=== PATIENT | male | born 1985 | race Caucasian/White ===

== ENCOUNTER 2016-11-21 11:21 | Emergency (ER) | payer MEDICARE ==
--- NOTE | 2016-11-21 11:53 | ERPHSYRPT ---
- History of Present Illness Time Seen by Provider: 11/21/16 11:23 Source: patient, family (father and sibling) Exam Limitations: no limitations Patient Subjective Stated Complaint: 'my dad thinks i have sugar problems but i dont know' Triage Nursing Assessment: pt very sober and flat on arrival. presented to er with father and pts son. pt states he is unsure oif he has sugar problems. father states 'is that maybe why you are hearing voices, malika' pt denies hearing voices. skin warm and dry. father leading pt to tell 'nurse about talking to the angels' Physician History: patient has no complaints; father brought here fro evaluation of visual and auditory halucinations; started 6 weeks ago; protestant in nature; voices from God and angels and relativews as well as non-existent relatives; voices not telling him to harm himself or others; no suicidal or homicidal thoughts; gets angry and wants to fight occassionally;no recent illness or trauma; no prior hx to 6 weeks ago; no change in meds; Timing/Duration: week(s) (6 onset), intermittent, gradual onset, worse Severity of Symptoms-Max: moderate Severity of Symptoms-Current: moderate Context related to: other (unknown) Suicidal thoughts: other (none) Associated Symptoms: angry (at times; not now), hallucinating (auditory anbd visual), impaired concentration Previous symptoms: no prior history Allergies/Adverse Reactions: lorazepam [From Ativan] Allergy (Mild, Verified 11/21/16 11:37) Nausea Home Medications: Ergocalciferol (Vitamin D2) [Vitamin D] 50,000 unit PO UD 11/21/16 [History] Oxcarbazepine [Trileptal] 600 mg PO BID 11/21/16 [History] Phenobarb 32.4 mg [Phenobarbital 32.4 mg] 64.8 mg PO BID 11/21/16 [History ] Phenytoin Sod Extended 100 mg* [Dilantin 100 MG] 100 mg PO TID 11/21/16 [ History] Topiramate [Topamax] 200 mg PO BID 11/21/16 [History] Hx Tetanus, Diphtheria Vaccination/Date Given: Yes Hx Influenza Vaccination/Date Given: No Hx Pneumococcal Vaccination/Date Given: No Immunizations Up to Date: Yes - Past Medical History Pertinent Past Medical History: Yes Neurological History: Seizures - Past Surgical History Past Surgical History: Yes Other Surgical History: vns stimulator for seizures. - Social History Smoking Status: Never smoker Exposure to second hand smoke: No Alcohol Use: None Drug Use: none Patient Lives Alone: No Significant Family History: no pertinent family hx - Review of Systems Constitutional: No Symptoms Eyes: No Symptoms Ears, Nose, & Throat: No Symptoms Respiratory: No Cough, No Dyspnea, No Wheezing Cardiac: No Chest Pain, No Palpitations, No Syncope Abdominal/Gastrointestinal: No Abdominal Pain, No Nausea, No Vomiting, No Diarrhea Genitourinary Symptoms: No Symptoms Musculoskeletal: No Symptoms Skin: No Symptoms Neurological: Seizure (chronic), No Dizziness, No Gait Changes, No Headache, No Paralysis, No Parasthesia, No Vertigo Psychological: Emotional Lability, Hallucinations (auditory and visual), Memory Loss, Mood Changes, No Alcohol Abuse, No Drug Abuse, No Suicidal Ideations, No Homicidal Ideations Endocrine: No Symptoms Hematologic/Lymphatic: No Symptoms Immunological/Allergic: No Symptoms - Nursing Vital Signs Nursing Vital Signs: Initial Vital Signs Temperature 98.9 F Temperature Source Oral Pulse Rate 80 Respiratory Rate 18 Blood Pressure [] 116/71 Pain Intensity 0 - Physical Exam General Appearance: mild distress, alert, thin Eyes, Ears, Nose, Throat Exam: normal ENT inspection, TMs normal, pharynx normal , moist mucous membranes Neck Exam: normal inspection, non-tender, supple, full range of motion, No meningismus, No JVD Respiratory Exam: normal breath sounds, lungs clear, airway intact, No chest tenderness, No respiratory distress, No rhonchi, No wheezing, No stridor Cardiovascular Exam: regular rate/rhythm, normal heart sounds, normal peripheral pulses, capillary refill <2 sec, No murmur Gastrointestinal/Abdominal Exam: soft, normal bowel sounds, No tenderness, No mass, No guarding, No rebound, No organomegaly Extremities Exam: normal inspection, normal range of motion, No edema, No tenderness Peripheral Pulses: carotid (R): 4+, carotid (L): 4+, femoral (R): 4+, femoral (L ): 4+, dorsalis-pedis (R): 4+, dorsalis-pedis (L): 4+ Current Suicidality: denies suicide plan 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, normal mood/affect, 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, 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, oriented x 3, responds to pain, flat Appearance: appropriate appearance, neat, impaired insight, impaired recent memory Behavior/Eye Contact/Speech: alert & cooperative, cooperative, good eye contact , normal speech, decreased rate of speech Thoughts/Hallucinations: auditory hallucinations, protestant, visual hallucinations Skin Exam: normal color, warm, dry, No rash, No petechiae SpO2 Interpretation: normal SpO2: 98 Oxygen Delivery: Room Air - Course Nursing assessment & vital signs reviewed: Yes EKG Interpreted by Me: RATE (78), Sinus Rhythm, NORMAL AXIS, NORMAL INTERVALS, NORMAL QRS, NORMAL ST-T, Other (no change from 03-01-2012) Rhythm Strip: Rate (78), Normal Sinus Rhythm - CT Exams Head CT Interpretation: Negative, Tele-radiologist Report, No/Intracranial Hemorrhag Ordered Tests: Active Orders 24 hr Category Date Time Status Accucheck STAT Care 11/21/16 11:46 Active EKG-ER Only STAT Care 11/21/16 11:46 Active Psychiatric Evaluation STAT Care 11/21/16 11:46 Active Re-Check Vital Signs STAT Care 11/21/16 11:46 Completed HEAD WITHOUT CONTRAST [CT] Stat Exams 11/21/16 11:56 Completed ACETAMINOPHEN Stat Lab 11/21/16 11:55 Completed CBC W DIFF Stat Lab 11/21/16 11:55 Completed CMP Stat Lab 11/21/16 11:55 Completed Ethyl Alcohol,Urine Stat Lab 11/21/16 13:30 Completed SALICYLATE Stat Lab 11/21/16 11:55 Completed Urine Triage Profile Stat Lab 11/21/16 13:30 Completed VALPROIC ACID (DEPAKOTE) Stat Lab 11/21/16 11:55 Completed Lab/Rad Data: Laboratory Result Diagrams 11/21/16 11:55 11/21/16 11:55 Laboratory Results 11/21/16 11/21/16 11/21/16 Range/Units 13:30 13:30 11:55 WBC (4.0-10.5) K/mm3 RBC (4.1-5.6) M/mm3 Hgb (12.5-18.0) gm/dl Hct (42-50) % MCV (78-100) fl MCH (26-32) pg MCHC (32-36) g/dl RDW (11.5-14.0) % Plt Count (150-450) K/mm3 MPV (6-9.5) fl Gran % (36.0-66.0) % Lymphocytes % (24.0-44.0) % Monocytes % (0.0-12.0) % Eosinophils % (0.00-5.0) % Basophils % (0.0-0.4) % Basophils # (0-0.4) Sodium 142 (136-145) mEq/L Potassium 3.7 (3.5-5.1) mEq/L Chloride 106 (98-107) mEq/L Carbon Dioxide 24.3 (21-32) mEq/L Anion Gap 15.2 H (5-15) MEQ/L BUN 12 (9-20) mg/dL Creatinine 1.01 (0.55-1.30) mg/dl Estimated GFR > 60 ML/MIN Glucose 98 (70-110) MG/DL Calcium 8.7 (8.5-10.1) mg/dL Total Bilirubin 0.40 (0.2-1.0) mg/dL AST 21 (15-37) U/L ALT 25 (12-78) U/L Alkaline Phosphatase 59 (46-116) U/L Serum Total Protein 7.3 (6.4-8.2) gm/dL Albumin 4.5 (3.4-5.0) g/dL Salicylates < 2.8 L (2.8-20.0) mg/dl Urine Opiates Level NEG. (NEGATIVE) Ur Methadone NEG. (NEGATIVE) Acetaminophen < 2.0 L (10-30) ug/ml Urine Barbiturates POS. (NEGATIVE) Valproic Acid < 3.0 L (50-100) UG/ML Ur Phencyclidine (PCP) NEG. (NEGATIVE) Urine Amphetamine NEG. (NEGATIVE) U Benzodiazepine Level NEG. (NEGATIVE) Urine Cocaine NEG. (NEGATIVE) Urine Marijuana (THC) NEG. (NEGATIVE) Urine pH 7.0 (3-8.5) Urine Ethyl Alcohol < 3 (0.00-20) mg/dl 11/21/16 Range/Units 11:55 WBC 4.7 (4.0-10.5) K/mm3 RBC 4.85 (4.1-5.6) M/mm3 Hgb 15.6 (12.5-18.0) gm/dl Hct 47.1 (42-50) % MCV 97.1 (78-100) fl MCH 32.2 H (26-32) pg MCHC 33.1 (32-36) g/dl RDW 13.1 (11.5-14.0) % Plt Count 159 (150-450) K/mm3 MPV 9.6 H (6-9.5) fl Gran % 53.4 (36.0-66.0) % Lymphocytes % 29.4 (24.0-44.0) % Monocytes % 15.5 H (0.0-12.0) % Eosinophils % 1.5 (0.00-5.0) % Basophils % 0.2 (0.0-0.4) % Basophils # 0.01 (0-0.4) Sodium (136-145) mEq/L Potassium (3.5-5.1) mEq/L Chloride (98-107) mEq/L Carbon Dioxide (21-32) mEq/L Anion Gap (5-15) MEQ/L BUN (9-20) mg/dL Creatinine (0.55-1.30) mg/dl Estimated GFR ML/MIN Glucose (70-110) MG/DL Calcium (8.5-10.1) mg/dL Total Bilirubin (0.2-1.0) mg/dL AST (15-37) U/L ALT (12-78) U/L Alkaline Phosphatase (46-116) U/L Serum Total Protein (6.4-8.2) gm/dL Albumin (3.4-5.0) g/dL Salicylates (2.8-20.0) mg/dl Urine Opiates Level (NEGATIVE) Ur Methadone (NEGATIVE) Acetaminophen (10-30) ug/ml Urine Barbiturates (NEGATIVE) Valproic Acid (50-100) UG/ML Ur Phencyclidine (PCP) (NEGATIVE) Urine Amphetamine (NEGATIVE) U Benzodiazepine Level (NEGATIVE) Urine Cocaine (NEGATIVE) Urine Marijuana (THC) (NEGATIVE) Urine pH (3-8.5) Urine Ethyl Alcohol (0.00-20) mg/dl reviewed reviewed - Progress Progress: re-examined (after labs) Progress Note: 11/21/16 11:55 will get labs , ekg and CT and recheck and Psyche consult 11/21/16 12:[address]; results pending; family at bedside 11/21/16 12:37 CBC wnl 11/21/16 12:47 rechecked; family at bedside; patient resting quietly; CT head wnl; labs except tox screen ok; tox screen results pending; will get Psyche consult 11/21/16 13:17 seizure meds level low; tox screen pending 11/21/16 13:47 tox screen pos for BArbituates only; ETOH neg; no change in exam; will get [facility] consult 11/21/16 13:58 Discussed getting [facility] consult and patient refuses to talk with them. Discussed with father and he will take the patient home and follow up with Dr Armijo on seizure meds and possible Psyche consult; Instructions given Counseled pt/family regarding: lab results, diagnosis, need for follow-up, rad results - Departure Time of Disposition: 13:59 Departure Disposition: Home Clinical Impression: Hallucination, visual, Hallucinations, Seizure disorder Condition: Stable Critical Care Time: No Instructions: Schizophrenia Additional Instructions: continue home meds; follow up Dr Armijo for Hallucinations on 11/25/16 at 315 pm. Follow-up with family doctor as directed. Call for appointment. Return if any problems. If you smoke please stop. Call or follow up with your family doctor for assistance if you need it to stop. Please wear your seatbelt when driving. Have a nice day. Thank you for allowing us to participate in your care today. :o) Dr Jose Antonio Earl
[2016-11-21 12:03] LABS: BASOPHIL % 0.2 % (0.0-0.4); Eosinophil % 1.5 % (0.00-5.0); Granulocytes % 53.4 % (36.0-66.0); Lymphocytes % 29.4 % (24.0-44.0); Mean Cell Volume 97.1 fl (78-100); Mean Corpuscular Hemoglobin 32.2 pg (26-32); Mean Platelet Volume 9.6 fl (6-9.5); Monocytes % 15.5 % (0.0-12.0); Platelet Count 159 K/mm3 (150-450); Red Blood Count 4.85 M/mm3 (4.1-5.6); Red Cell Distribution Width 13.1 % (11.5-14.0); White Blood Count 4.7 K/mm3 (4.0-10.5)
[2016-11-21 12:25] LABS: ALBUMIN 4.5 g/dL (3.4-5.0); ALKALINE PHOSPHATASE 59 U/L (46-116); ANION GAP 15.2 MEQ/L (5-15); BLOOD UREA NITROGEN 12 mg/dL (9-20); CHLORIDE 106 mEq/L (98-107); Carbon Dioxide 24.3 mEq/L (21-32); Glucose 98 MG/DL (70-110); Potassium 3.7 mEq/L (3.5-5.1); SGOT/AST 21 U/L (15-37); SGPT/ALT 25 U/L (12-78); SODIUM 142 mEq/L (136-145); Total Protein 7.3 gm/dL (6.4-8.2)
--- NOTE | 2016-11-21 12:28 | XRAY ---
Indication: Altered mental status. Behavioral problems. History of epilepsy. Multiple contiguous axial images obtained through the head without contrast. Comparison: March 01, 2012 Again normal appearing brain parenchyma, ventricles, and bony calvarium. Visualized paranasal sinuses and mastoid air cells are pneumatized and clear. Impression: Stable normal CT head without contrast exam. CT DI 70.87
[2016-11-21 12:40] LABS: ACETAMINOPHEN < 2.0 ug/ml (10-30)
[2016-11-21 14:26] VITALS: BP 120/64; PULSE 64; O2SAT 97
== END 2016-11-21 14:27 | disposition home or self-care (01) ==
LOC: ED 11:21
DX: R44.3 Hallucinations, unspecified (principal); R44.1 Visual hallucinations; G40.909 Epilepsy, unspecified, not intractable, without status epilepticus; Z79.899 Other long term (current) drug therapy; F39 Unspecified mood [affective] disorder
CPT/HCPCS: 99283; 82962; 93005; 36415; 80164; 80307 ×2; 80320; 83986; 85025; 80053; 70450; G0481; 90791; 99284; Q3014

== ENCOUNTER 2017-02-16 18:59 | Emergency (ER) | payer MEDICARE ==
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
[2017-02-16 19:58] LABS: BASOPHIL % 0.2 % (0.0-0.4); Eosinophil % 2.9 % (0.00-5.0); Granulocytes % 65.5 % (36.0-66.0); Lymphocytes % 17.6 % (24.0-44.0); Mean Cell Volume 99.8 fl (78-100); Mean Corpuscular Hemoglobin 32.7 pg (26-32); Mean Platelet Volume 9.1 fl (6-9.5); Monocytes % 13.8 % (0.0-12.0); Platelet Count 178 K/mm3 (150-450); Red Blood Count 4.16 M/mm3 (4.1-5.6); Red Cell Distribution Width 12.9 % (11.5-14.0); White Blood Count 5.6 K/mm3 (4.0-10.5)
[2017-02-16 20:21] LABS: ALKALINE PHOSPHATASE 63 U/L (46-116); ANION GAP 12.9 MEQ/L (5-15); BLOOD UREA NITROGEN 27 mg/dL (9-20); CHLORIDE 111 mEq/L (98-107); Carbon Dioxide 23.2 mEq/L (21-32); ETHYL ALCOHOL < 0.010 % (0.00-0.01); Glucose 113 MG/DL (70-110); SGOT/AST 39 U/L (15-37); SGPT/ALT 39 U/L (12-78); SODIUM 143 mEq/L (136-145); Total Protein 6.7 gm/dL (6.4-8.2)
[2017-02-16 20:26] LABS: ACETAMINOPHEN < 2.0 ug/ml (10-30)
[2017-02-16 20:55] VITALS: O2SAT 96
[2017-02-16] MEDS ORDERED: PHENOBARBITAL 32.4 MG ONE (21:36)
[2017-02-16] MEDS ORDERED: Dilantin 100 MG ONE (21:37)
[2017-02-16] MEDS ORDERED: Topamax 100 MG ONE (21:37)
[2017-02-16] MEDS ORDERED: Haldol 5 MG ONE (21:37)
[2017-02-16] MEDS ORDERED: Prozac 20 MG ONE (21:38)
[2017-02-16] MEDS ORDERED: Haldol 5 MG PO ONE ×2 (21:42→21:53)
[2017-02-16] MEDS ORDERED: Trileptal 300 MG Tablet ONE (21:44)
[2017-02-16] MEDS ORDERED: Dilantin 100 MG PO ONE (21:44)
[2017-02-16] MEDS ORDERED: PHENOBARBITAL 32.4 MG PO ONE (21:45)
[2017-02-16] MEDS ORDERED: Trileptal 300 MG Tablet PO ONE (21:47)
[2017-02-16] MEDS: Prozac 20 MG PO SCH ×2 (21:50→21:52)
[2017-02-16] MEDS: Topamax 100 MG PO ONE (21:50)
[2017-02-17 00:02] VITALS: BP 113/84; PULSE 92
== END 2017-02-17 00:10 | disposition short-term general hospital (02) ==
LOC: ED 18:59
DX: R45.850 Homicidal ideations (principal); F32.9 Major depressive disorder, single episode, unspecified; Z79.899 Other long term (current) drug therapy; R56.9 Unspecified convulsions
CPT/HCPCS: 99285; 36415; 80185; 80175; 80184; 80307 ×2; 85025; 80053; G0481 ×2; A9270-GY

== ENCOUNTER 2017-03-02 21:06 | Emergency (ER) | payer MEDICARE ==
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
[2017-03-03] MEDS ORDERED: MOTRIN 600 MG PO ONE (00:12)
[2017-03-03] MEDS ORDERED: MOTRIN 600 MG ONE (00:14)
[2017-03-03 00:26] LABS: ADD URINE CULTURE? NO (NO); Bilirubin NEGATIVE (NEGATIVE); Blood NEGATIVE Ery/ul (0-5); COMPLETE URINE MICROSCOPIC? NO; Collection Type CLEAN CATCH; Glucose NEGATIVE (NEGATIVE); Leukocyte Esterase NEGATIVE (NEGATIVE)
[2017-03-03 00:27] LABS: BASOPHIL % 0.1 % (0.0-0.4); Eosinophil % 1.8 % (0.00-5.0); Granulocytes % 74.3 % (36.0-66.0); Lymphocytes % 12.6 % (24.0-44.0); Mean Cell Volume 100.9 fl (78-100); Mean Corpuscular Hemoglobin 32.7 pg (26-32); Monocytes % 11.2 % (0.0-12.0); Platelet Count 189 K/mm3 (150-450); Red Blood Count 4.41 M/mm3 (4.1-5.6); Red Cell Distribution Width 13.2 % (11.5-14.0); White Blood Count 11.1 K/mm3 (4.0-10.5)
[2017-03-03 00:47] LABS: ACETAMINOPHEN < 2.0 ug/ml (10-30); ALBUMIN 4.2 g/dL (3.4-5.0); ALKALINE PHOSPHATASE 99 U/L (46-116); ANION GAP 11.5 MEQ/L (5-15); BLOOD UREA NITROGEN 15 mg/dL (9-20); CHLORIDE 107 mEq/L (98-107); Carbon Dioxide 25.8 mEq/L (21-32); ETHYL ALCOHOL < 0.010 % (0.00-0.01); Glucose 90 MG/DL (70-110); Potassium 4.3 mEq/L (3.5-5.1); SGOT/AST 52 U/L (15-37); SGPT/ALT 38 U/L (12-78); SODIUM 140 mEq/L (136-145); Total Protein 6.5 gm/dL (6.4-8.2)
--- NOTE | 2017-03-03 08:45 | XRAY ---
Indication: Pain following injury. Comparison: None 2 views of the right ribs demonstrates nondisplaced 8/9 posterior lateral acute rib fractures. No other bony, articular, or soft tissue abnormalities.
--- NOTE | 2017-03-03 08:47 | XRAY ---
Indication: Right-sided rib pain following injury. Comparison: March 01, 2012. PA/lateral chest again demonstrates normal heart and lungs with left-sided electronic stimulator device and lead terminating base of the left neck. Bony thorax demonstrates new right 8/9 rib fractures.
[2017-03-03 10:11] VITALS: BP 113/67; PULSE 72; O2SAT 98
== END 2017-03-03 12:26 ==
LOC: ED 21:06
DX: S22.41XA Multiple fractures of ribs, right side, initial encounter for closed fracture (principal); R07.9 Chest pain, unspecified; M54.9 Dorsalgia, unspecified; Z79.899 Other long term (current) drug therapy; Y35.893A Legal intervention involving other specified means, suspect injured, initial encounter
CPT/HCPCS: 99285; 81002; 36415; 80307 ×2; 85025; 80053; 71020; 71100; G0481 ×2; A9270-GY

== ENCOUNTER 2017-10-24 21:07 | Emergency (ER) | payer OTHER, MEDICARE ==
[2017-10-24] MEDS ORDERED: TYLENOL 325 MG PO ONE (21:37)
[2017-10-24] MEDS ORDERED: Sodium Chloride 0.9% 1000 ML 1,000 ML IV STA (21:37)
[2017-10-24] MEDS ORDERED: CLINDAMYCIN-D5W 600 MG/50 ML*** 600 MG/50 ML BAG IV STA (21:39)
[2017-10-24] MEDS ORDERED: Decadron 4 MG INJ IV ONE (21:40)
[2017-10-24] MEDS ORDERED: TYLENOL 325 MG ONE (21:41)
--- NOTE | 2017-10-24 21:44 | ERPHSYRPT ---
- History of Present Illness Time Seen by Provider: 10/24/17 21:35 Source: patient Exam Limitations: no limitations Patient Subjective Stated Complaint: fever with sore throat x 1 week. cough with clear Triage Nursing Assessment: alert and slow noted swelling to right side of neck.. states sore throat with no difficulty swallowing. Physician History: 32 y/o male [facility] for right sided neck swelling with difficulty swallowing and fever for the past month. Pt says there is only pain with palpation but otherwise has no pain and denies his throat closing or shortness of breath. Pt does admit that the swelling has gotten bigger over the last few days. Pt arrives with a fever of 102 and tachycardic at 100. Timing/Duration: gradual onset, weeks Severity: mild ENT Location: facial Prearrival Treatment: no prearrival treatment Associated Symptoms: swollen glands, No neck pain Allergies/Adverse Reactions: lorazepam [From Ativan] Allergy (Mild, Verified 10/24/17 21:28) Nausea Home Medications: Ergocalciferol (Vitamin D2) [Vitamin D] 50,000 unit PO UD 11/21/16 [History] Oxcarbazepine [Trileptal] 600 mg PO BID 11/21/16 [History] Phenobarb 32.4 mg [Phenobarbital 32.4 mg] 64.8 mg PO BID 11/21/16 [History ] Phenytoin Sod Extended 100 mg* [Dilantin 100 MG] 100 mg PO TID 11/21/16 [ History] Topiramate [Topamax] 200 mg PO BID 11/21/16 [History] Benztropine Mesylate 1 mg PO BID 02/16/17 [History] Fluoxetine HCl [Prozac] 40 mg PO DAILY 02/16/17 [History] Haloperidol 5 mg [Haldol 5 MG] 7.5 mg PO BID 02/16/17 [History] Hx Tetanus, Diphtheria Vaccination/Date Given: Yes Hx Influenza Vaccination/Date Given: No Hx Pneumococcal Vaccination/Date Given: No Immunizations Up to Date: Yes - Review of Systems Constitutional: No Fever, No Chills Eyes: No Symptoms Ears, Nose, & Throat: No Symptoms, Painful Swallowing, Other (jaw swelling) Respiratory: No Cough, No Dyspnea Cardiac: No Chest Pain, No Edema, No Syncope Abdominal/Gastrointestinal: No Abdominal Pain, No Nausea, No Vomiting, No Diarrhea Genitourinary Symptoms: No Dysuria Musculoskeletal: No Back Pain, No Neck Pain Skin: No Rash Neurological: No Dizziness, No Focal Weakness, No Sensory Changes Psychological: No Symptoms Endocrine: No Symptoms All Other Systems: Reviewed and Negative - Past Medical History Pertinent Past Medical History: Yes Neurological History: Seizures Psycho-Social History: Anxiety, Depression - Past Surgical History Past Surgical History: Yes Other Surgical History: vns stimulator for seizures. - Social History Smoking Status: Former smoker Exposure to second hand smoke: No Alcohol Use: None Drug Use: none Patient Lives Alone: No Significant Family History: no pertinent family hx - Nursing Vital Signs Nursing Vital Signs: Initial Vital Signs Temperature 101.4 F 10/24/17 21:19 Pulse Rate 100 H 10/24/17 21:19 Respiratory Rate 18 10/24/17 21:19 Blood Pressure 135/82 10/24/17 21:19 O2 Sat by Pulse Oximetry 97 10/24/17 21:19 Pain Scale Pain Intensity 0 - Physical Exam General Appearance: no apparent distress, alert Eye Exam: bilateral eye: PERRL, EOMI Nasal Exam: normal inspection Throat Exam: pharynx normal, moist mucus membranes, No tonsillar exudate Neck Exam: supple, full range of motion, tender lateral Cardiovascular/Respiratory Exam: normal breath sounds, regular rate/rhythm Abdominal Exam: non-tender, soft Neurologic Exam: alert, oriented x 3, sensation nml, No motor deficits Skin Exam: normal color, warm, dry SpO2: 97 Oxygen Delivery: Room Air - Course Nursing assessment & vital signs reviewed: Yes Ordered Tests: Active Orders 24 hr Category Date Time Status IV Insertion STAT Care 10/24/17 21:37 Active NECK WITH CONTRAST [CT] Stat Exams 10/24/17 21:39 Taken BLOOD CULTURE Stat Lab 10/24/17 22:00 Received CBC W DIFF Stat Lab 10/24/17 21:55 Completed CMP Stat Lab 10/24/17 21:55 Completed CULTURE, THROAT Stat Lab 10/24/17 22:00 Received Lactic Acid Stat Lab 10/24/17 21:54 Completed Trigg Screen Stat Lab 10/24/17 21:55 Completed STREP SCREEN-BETA A Stat Lab 10/24/17 22:00 Completed Medication Summary Discontinued Medications Generic Name Dose Route Start Last Admin Trade Name Freq PRN Reason Stop Dose Admin Acetaminophen 975 mg 10/24/17 21:37 10/24/17 21:41 Tylenol 325 Mg PO 10/24/17 21:38 975 mg STAT ONE Administration Acetaminophen Confirm 10/24/17 21:41 Tylenol 325 Mg Administered 10/24/17 21:42 Dose 975 mg .ROUTE .STK-MED ONE Dexamethasone Sodium Phosphate 4 mg 10/24/17 21:40 10/24/17 22:10 Decadron 4 Mg Inj IV 10/24/17 21:41 4 mg STAT ONE Administration Dexamethasone Sodium Phosphate Confirm 10/24/17 22:05 Decadron 4 Mg Inj Administered 10/24/17 22:06 Dose 4 mg .ROUTE .STK-MED ONE Sodium Chloride 1,000 mls @ 999 mls/hr 10/24/17 21:37 10/24/17 23:17 Sodium Chloride 0.9% 1000 Ml IV 10/24/17 22:37 Infused .Q1H1M STA Infusion Clindamycin HCl/Dextrose 600 mg in 50 mls @ 100 mls/hr 10/24/17 21:39 23:17 Clindamycin-D5w 600 Mg/50 Ml IV 10/24/17 22:08 Infused STAT STA Infusion Sodium Chloride Confirm 10/24/17 22:06 Sodium Chloride 0.9% 1000 Ml Administered 10/24/17 22:07 Dose 1,000 mls @ ud .ROUTE .STK-MED ONE Clindamycin HCl/Dextrose Confirm 10/24/17 22:06 Clindamycin-D5w 600 Mg/50 Ml Administered 10/24/17 22:07 Dose 600 mg in 50 mls @ ud IV .STK-MED ONE Lab/Rad Data: Laboratory Result Diagrams 10/24/17 21:55 10/24/17 21:55 Laboratory Results 10/24/17 10/24/17 10/24/17 Range/Units 22:00 21:55 21:55 WBC (4.0-10.5) K/mm3 RBC (4.1-5.6) M/mm3 Hgb (12.5-18.0) gm/dl Hct (42-50) % MCV (78-100) fl MCH (26-32) pg MCHC (32-36) g/dl RDW (11.5-14.0) % Plt Count (150-450) K/mm3 MPV (6-9.5) fl Gran % (36.0-66.0) % Eos # (Auto) (0-0.5) Absolute Lymphs (auto) (1.0-4.6) Absolute Monos (auto) (0.0-1.3) Lymphocytes % (24.0-44.0) % Monocytes % (0.0-12.0) % Eosinophils % (0.00-5.0) % Basophils % (0.0-0.4) % Absolute Granulocytes (1.4-6.9) Basophils # (0-0.4) Sodium 139 (137-145) mmol/L Potassium 3.8 (3.5-5.1) mmol/L Chloride 103 (98-107) mmol/L Carbon Dioxide 23 (22-30) mmol/L Anion Gap 16.9 H (5-15) MEQ/L BUN 10 (9-20) mg/dL Creatinine 0.95 (0.66-1.25) mg/dL Estimated GFR > 60.0 ML/MIN Glucose 131 H (74-106) mg/dL Lactic Acid (0.4-2.0) Calcium 9.0 (8.4-10.2) mg/dL Total Bilirubin 0.50 (0.2-1.3) mg/dL AST 22 (17-59) U/L ALT 37 (0-50) U/L Alkaline Phosphatase 107 (38-126) U/L Serum Total Protein 8.3 H (6.3-8.2) g/dL Albumin 4.5 (3.5-5.0) g/dL Monoscreen NEGATIVE (Negative) Streptococcus Screen NEGATIVE (Negative) Slides for Path Review 10/24/17 10/24/17 Range/Units 21:55 21:54 WBC 17.3 H (4.0-10.5) K/mm3 RBC 4.87 (4.1-5.6) M/mm3 Hgb 15.8 (12.5-18.0) gm/dl Hct 47.2 (42-50) % MCV 96.9 (78-100) fl MCH 32.4 H (26-32) pg MCHC 33.5 (32-36) g/dl RDW 12.7 (11.5-14.0) % Plt Count 267 (150-450) K/mm3 MPV 8.1 (6-9.5) fl Gran % 79.7 H (36.0-66.0) % Eos # (Auto) 0.02 (0-0.5) Absolute Lymphs (auto) 1.28 (1.0-4.6) Absolute Monos (auto) 2.20 H (0.0-1.3) Lymphocytes % 7.4 L (24.0-44.0) % Monocytes % 12.7 H (0.0-12.0) % Eosinophils % 0.1 (0.00-5.0) % Basophils % 0.1 (0.0-0.4) % Absolute Granulocytes 13.79 H (1.4-6.9) Basophils # 0.01 (0-0.4) Sodium (137-145) mmol/L Potassium (3.5-5.1) mmol/L Chloride (98-107) mmol/L Carbon Dioxide (22-30) mmol/L Anion Gap (5-15) MEQ/L BUN (9-20) mg/dL Creatinine (0.66-1.25) mg/dL Estimated GFR ML/MIN Glucose (74-106) mg/dL Lactic Acid 1.1 (0.4-2.0) Calcium (8.4-10.2) mg/dL Total Bilirubin (0.2-1.3) mg/dL AST (17-59) U/L ALT (0-50) U/L Alkaline Phosphatase (38-126) U/L Serum Total Protein (6.3-8.2) g/dL Albumin (3.5-5.0) g/dL Monoscreen (Negative) Streptococcus Screen (Negative) Slides for Path Review YES - Progress Progress: improved Progress Note: 10/25/17 00:32 Pt feels better after receiving decadron, NS fluids and clindamycin. Pt does have a white count of 17,000 but the fever has come down to 99. The CT scan neck shows pharyngitis, laryngitis, right parotid and submandibular adenitis and lymph node adenitis with a small retropharyngeal effusion. I spoke to Dr Parham at [facility] and he mentioned that the patient can follow up with ENT as an outpatient. Pt will be placed on a 10 day course of clindamycin. - Departure Time of Disposition: 00:35 Departure Disposition: Home Clinical Impression: Adenitis, Parotitis Condition: Stable Critical Care Time: No Referrals: HOLLAND LYNN [Primary Care Provider] - TROY SANCHEZ [COURTESY STAFF] - Instructions: Parotitis Additional Instructions: Follow up with Dr Sanchez in the next few days if there is no improvement. Finish the antibiotics until completion. Prescriptions: Clindamycin HCl [Cleocin HCl] 300 mg PO TID #30 capsule Ketorolac Tromethamine [Toradol] 10 mg PO QID PRN #20 tablet PRN Reason: Pain
[2017-10-24 22:03] LABS: BASOPHIL % 0.1 % (0.0-0.4); Basophil (Absolute #) 0.01 (0-0.4); Eosinophil % 0.1 % (0.00-5.0); Eosinophil (Absolute #) 0.02 (0-0.5); Granulocyte Absolute (ANC) 13.79 (1.4-6.9); Granulocytes % 79.7 % (36.0-66.0); Hematocrit 47.2 % (42-50); Hemoglobin 15.8 gm/dl (12.5-18.0); Lymphocyte (Absolute #) 1.28 (1.0-4.6); Lymphocytes % 7.4 % (24.0-44.0); Mean Cell Volume 96.9 fl (78-100); Mean Corpuscular Hemoglobin 32.4 pg (26-32); Mean Corpuscular Hgb Concent. 33.5 g/dl (32-36); Mean Platelet Volume 8.1 fl (6-9.5); Monocytes % 12.7 % (0.0-12.0); Platelet Count 267 K/mm3 (150-450); Red Blood Count 4.87 M/mm3 (4.1-5.6); Red Cell Distribution Width 12.7 % (11.5-14.0); White Blood Count 17.3 K/mm3 (4.0-10.5)
[2017-10-24] MEDS ORDERED: Decadron 4 MG INJ ONE (22:05)
[2017-10-24] MEDS ORDERED: Sodium Chloride 0.9% 1000 ML 1,000 ML ONE (22:06)
[2017-10-24] MEDS ORDERED: CLINDAMYCIN-D5W 600 MG/50 ML*** 600 MG/50 ML BAG IV ONE (22:06)
[2017-10-24 22:23] LABS: ALBUMIN 4.5 g/dL (3.5-5.0); ALKALINE PHOSPHATASE 107 U/L (38-126); ANION GAP 16.9 MEQ/L (5-15); BLOOD UREA NITROGEN 10 mg/dL (9-20); CHLORIDE 103 mmol/L (98-107); Carbon Dioxide 23 mmol/L (22-30); Creatinine 1 0.95 mg/dL (0.66-1.25); Glucose 131 mg/dL (74-106); Potassium 3.8 mmol/L (3.5-5.1); SGOT/AST 22 U/L (17-59); SGPT/ALT 37 U/L (0-50); SODIUM 139 mmol/L (137-145); Total Protein 8.3 g/dL (6.3-8.2)
[2017-10-24 23:02] LABS: Slide Review 1 YES
[2017-10-25 00:38] VITALS: O2SAT 97
[2017-10-25 01:17] VITALS: BP 134/90; PULSE 78
--- NOTE | 2017-10-27 15:19 | XRAY ---
Indication: Sore throat, right neck edema, cough, and elevated WBC. Multiple contiguous axial images obtained through the neck using 60 cc Isovue 370 contrast. Sagittal and coronal reformatted images obtained. Comparison: None Right parotid and lesser degree right submandibular glands are asymmetrically enlarged with surrounding mild stranding favoring underlying inflammatory process. There are also scattered small cervical lymph nodes, right greater than left presumed reactive. Right oral pharyngeal and hypopharyngeal soft tissue fullness with effacement of the right piriformis sinus also favoring inflammatory process. Small thin linear retropharyngeal fluid collection 4 mm in thickness seen anterior to the C3-C4 segments. Normal epiglottis. Major arteries and veins are normal in course and caliber. Thyroid gland enhances homogeneously. Visualized osseous structures are intact. Visualized paranasal sinuses and mastoid air cells are clear. Visualized base of the brain and lung apices unremarkable. Impression: CT findings as detailed favoring right-sided pharyngitis, laryngitis, and parotid/submandibular adenitis with small retropharyngeal effusion and reactive lymph nodes. Comment: Preliminary interpretation was made by [facility]. No discrepancy. CTDI 21.51
== END 2017-10-25 01:17 | disposition home or self-care (01) ==
LOC: ED 21:07
DX: I88.9 Nonspecific lymphadenitis, unspecified (principal); K11.20 Sialoadenitis, unspecified; Z79.899 Other long term (current) drug therapy
CPT/HCPCS: 36000; 36415; 70491; 80053; 83605; 85025; 86308; 86735; 87040; 87070; 87430; 96360; 96365; 96374; 99284; J1100; A9270-GY

== ENCOUNTER 2020-09-25 21:31 | Emergency (ER) | payer MEDICARE ==
[2020-09-25 22:03] LABS: Absolute Neutrophil Ct (ANC) 3.86 (1.4-6.9); BASOPHIL % 0.2 % (0.0-0.4); Basophil (Absolute #) 0.01 (0-0.4); Eosinophil % 2.8 % (0.00-5.0); Eosinophil (Absolute #) 0.18 (0-0.5); Hematocrit 48.2 % (42-50); Hemoglobin 15.7 gm/dl (12.5-18.0); Lymphocytes % 26.2 % (24.0-44.0); Mean Cell Volume 97.6 fl (78-100); Mean Corpuscular Hemoglobin 31.8 pg (26-32); Mean Corpuscular Hgb Concent. 32.6 g/dl (32-36); Mean Platelet Volume 9.2 fl (7.5-11.0); Monocyte (Absolute #) 0.75 (0.0-1.3); Monocytes % 11.5 % (0.0-12.0); Neutrophil % 59.3 % (36.0-66.0); Platelet Count 215 K/mm3 (150-450); Red Blood Count 4.94 M/mm3 (4.1-5.6); Red Cell Distribution Width 13.6 % (11.5-14.0); White Blood Count 6.5 K/mm3 (4.0-10.5)
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
[2020-09-25 22:16] LABS: ACETAMINOPHEN < 10 ug/ml (10-30); ALBUMIN 4.3 g/dL (3.5-5.0); ALKALINE PHOSPHATASE 78 U/L (38-126); ANION GAP 12.5 MEQ/L (5-15); BLOOD UREA NITROGEN 10 mg/dL (9-20); CHLORIDE 109 mmol/L (98-107); Calcium 8.7 mg/dL (8.4-10.2); Carbon Dioxide 20 mmol/L (22-30); Creatinine 1 0.86 mg/dL (0.66-1.25); EST GLOMERULAR FILTRATION RATE > 60.0 ML/MIN; ETHYL ALCOHOL < 10 mg/dL (0-10); Glucose 101 mg/dL (74-106); Potassium 3.3 mmol/L (3.5-5.1); SALICYLATE < 1.0 mg/dL (2-20); SGOT/AST 34 U/L (17-59); SGPT/ALT 28 U/L (0-50); SODIUM 138 mmol/L (137-145); Total Protein 7.1 g/dL (6.3-8.2)
[2020-09-25 22:58] LABS: Amourphous Crystal MODERATE /HPF (NEGATIVE); Appearance CLOUDY (CLEAR); Bilirubin NEGATIVE (NEGATIVE); Blood NEGATIVE Ery/ul (0-5); Glucose NEGATIVE (NEGATIVE); Ketones NEGATIVE (NEGATIVE); Leukocyte Esterase NEGATIVE (NEGATIVE); Nitrite NEGATIVE (NEGATIVE); Protein,Urine Dip NEGATIVE (Negative); Specific Gravity 1.015 (1.005-1.025); Urobilinogen NEGATIVE mg/dL (0-1); WBC 0-2 /HPF (0-5)
[2020-09-25 23:03] LABS: Amphetamine,Urine NEGATIVE (NEGATIVE); Barbiturate,Urine POSITIVE (NEGATIVE); Benzodiazepine,Urine NEGATIVE (NEGATIVE); Cocaine,Urine NEGATIVE (NEGATIVE); Methadone,Urine NEGATIVE (NEGATIVE); Opiate,Urine NEGATIVE (NEGATIVE); PCP,Urine NEGATIVE (NEGATIVE); THC,Urine NEGATIVE (NEGATIVE)
[2020-09-26] MEDS ORDERED: Klor Con 10 MEQ PO ONE ×2 (06:51→06:52)
[2020-09-26 08:31] LABS: INFLUENZA A NEGATIVE (NEGATIVE); INFLUENZA B NEGATIVE (NEGATIVE); RESPIRATORY SYNCTIAL VIRUS NEGATIVE (Negative)
[2020-09-26 09:11] VITALS: BP 180/96
[2020-09-26] MEDS ORDERED: TYLENOL 325 MG PO PRN (09:25)
[2020-09-26] MEDS ORDERED: Zofran 4 MG/2 ML VIAL IV PRN (09:25)
[2020-09-26] MEDS ORDERED: DUONEB 0.5-3 MG/3 ml Neb IH PRN (09:25)
[2020-09-26] MEDS ORDERED: Haldol 5 MG PO SCH (10:00)
[2020-09-26] MEDS ORDERED: NON-FORMULARY ITEM (Topiramate [Topamax] 200 MG) PO SCH (10:00)
[2020-09-26] MEDS ORDERED: TOPIRAMATE PO SCH (10:00)
[2020-09-26] MEDS ORDERED: Trileptal 300 MG Tablet PO SCH (10:00)
[2020-09-26] MEDS ORDERED: PHENOBARBITAL 32.4 MG PO SCH (10:00)
[2020-09-26] MEDS ORDERED: Dilantin 100 MG PO SCH (10:00)
[2020-09-26] MEDS ORDERED: LEVETIRACETAM 1500 MG PO SCH (10:00)
[2020-09-26] MEDS ORDERED: KEPPRA 500 MG PO SCH (10:00)
[2020-09-26] MEDS ORDERED: OXCARBAZEPINE 1200 MG PO SCH (10:00)
[2020-09-26] MEDS ORDERED: NON-FORMULARY ITEM (Fluoxetine Hcl [Fluoxetine Hcl] 40 MG) PO SCH (10:00)
[2020-09-26] MEDS ORDERED: Prozac 20 MG PO SCH (10:00)
[2020-09-26 10:18] VITALS: PULSE 100; O2SAT 97
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
== END 2020-09-26 11:40 | disposition left against medical advice (07) ==
LOC: ED 21:31 → ICU 09-26 08:54
PROVIDERS: ADMIT General Practice; ATTEND General Practice
DX: R45.850 Homicidal ideations (principal); Z79.3 Long term (current) use of hormonal contraceptives; F41.9 Anxiety disorder, unspecified; G40.909 Epilepsy, unspecified, not intractable, without status epilepticus; Z79.899 Other long term (current) drug therapy; Z20.828 Contact with and (suspected) exposure to other viral communicable diseases
CPT/HCPCS: 0241U; 36415; 80053; 80307; 81001; 85025; 90791; 93041; 93268; 99285; G0378; G0480; Q3014; A9270-GY

== ENCOUNTER 2020-09-26 11:55 | Emergency (ER) | payer MEDICARE ==
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
[2020-09-26 18:19] VITALS: O2SAT 98
[2020-09-26 19:10] VITALS: BP 117/78; PULSE 89
== END 2020-09-26 19:20 | disposition critical access hospital (66) ==
LOC: ED 11:55
DX: R45.850 Homicidal ideations (principal)
CPT/HCPCS: 99285

== ENCOUNTER 2020-10-24 00:56 | Emergency (ER) | payer MEDICARE ==
[2020-10-24 01:15] VITALS: O2SAT 96
--- NOTE | 2020-10-24 01:55 | ERPHSYRPT ---
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 Pt arrived alert and oriented x3 and in NAD. He had several seizures in ER maintaining his airway which were less than 1 minute in duration. Pt states that he fell 2 days and is having some L rib pain. Timing/Duration: today Severity: mild Character of Deficits: none Deficits: no difficulties Baseline/Normal Cognition: alert oriented x 3 Current Cognition: alert oriented x 3 Associated Symptoms: seizures, No confusion, No fatigue, No fever, No chills, No loss of consciousness, No nausea, No vomiting, No weakness, No insomnia, No muscle spasms, No numbness/tingling in legs/feet, No paresthesia, No ringing in ears, No slurred speech, No trouble walking, No vision changes, No chest pain, No headache Allergies/Adverse Reactions: lorazepam [From Ativan] Allergy (Mild, Verified 09/26/20 12:00) Nausea Home Medications: Oxcarbazepine [Trileptal] 1,200 mg PO BID 11/21/16 [History] Phenobarb 32.4 mg [Phenobarbital 32.4 mg] 64.8 mg PO BID 11/21/16 [History] Phenytoin Sod Extended 100 mg* [Dilantin 100 MG] 100 mg PO BID 11/21/16 [History] Topiramate [Topamax] 200 mg PO BID 11/21/16 [History] Haloperidol 5 mg [Haldol 5 MG] 2.5 mg PO BID 02/16/17 [History] Fluoxetine HCl 40 mg PO DAILY 09/26/20 [History] Levetiracetam [Keppra] 1,500 mg PO BID 09/26/20 [History] Hx Tetanus, Diphtheria Vaccination/Date Given: Yes Hx Influenza Vaccination/Date Given: No Hx Pneumococcal Vaccination/Date Given: No Travel Risk - International Travel Have you traveled outside of the country in past 3 weeks: No - Coronavirus Screening Are you exhibiting any of the following symptoms?: No Close contact with a COVID-19 positive Pt in past 14-21 Days: No - Vaccine Status Have you recieved a Covid-19 vaccination: No - Review of Systems Constitutional: No Symptoms Eyes: No Symptoms Ears, Nose, & Throat: No Symptoms Respiratory: No Symptoms Cardiac: No Symptoms Abdominal/Gastrointestinal: No Symptoms Genitourinary Symptoms: No Symptoms Musculoskeletal: No Symptoms, Other (L thorax pain) Skin: No Symptoms Neurological: No Symptoms, Seizure Psychological: No Symptoms Endocrine: No Symptoms Hematologic/Lymphatic: No Symptoms Immunological/Allergic: No Symptoms - Past Medical History Pertinent Past Medical History: Yes Neurological History: Seizures ENT History: No Pertinent History Cardiac History: No Pertinent History Respiratory History: No Pertinent History Endocrine Medical History: No Pertinent History Musculoskeletal History: No Pertinent History GI Medical History: No Pertinent History History: No Pertinent History Psycho-Social History: Anxiety, Bipolar, Depression Male Reproductive Disorders: No Pertinent History - Past Surgical History Past Surgical History: Yes Neuro Surgical History: No Pertinent History Cardiac: No Pertinent History Respiratory: No Pertinent History Gastrointestinal: No Pertinent History Genitourinary: No Pertinent History Musculoskeletal: No Pertinent History Male Surgical History: No Pertinent History Other Surgical History: VNS Stimulator for seizures. (Internal Left Chest) - Social History Smoking Status: Light tobacco smoker Exposure to second hand smoke: No Alcohol Use: None Drug Use: none Patient Lives Alone: No Significant Family History: no pertinent family hx - Nursing Vital Signs Nursing Vital Signs: Initial Vital Signs Temperature 98.7 F 10/24/20 00:58 Pulse Rate 78 10/24/20 00:58 Respiratory Rate 16 10/24/20 00:58 Blood Pressure 138/86 10/24/20 00:58 O2 Sat by Pulse Oximetry 96 10/24/20 00:58 Pain Scale Pain Intensity 4 - Jony Coma Scale Best Eye Response (Jony): (4) open spontaneously Best Verbal Response ([place]): (5) oriented Best Motor Response ([place]): (6) obeys commands [place] Total: 15 - Physical Exam General Appearance: no apparent distress Eye Exam: bilateral eye: normal inspection, PERRL, EOMI Ears, Nose, Throat Exam: normal ENT inspection, TMs normal, pharynx normal, moist mucous membranes Neck Exam: normal inspection, non-tender, supple, full range of motion, No meni ngismus, No mass, No Brudzinski, No Kernig's Respiratory: normal breath sounds, chest tenderness (L lateral thorax w mild ttp) Cardiovascular: regular rate/rhythm, normal heart sounds, normal peripheral pulses, No murmur Gastrointestinal: soft, normal bowel sounds, No tenderness Back Exam: normal inspection, normal range of motion, No CVA tenderness, No vertebral tenderness Extremity Exam: normal inspection, normal range of motion, pelvis stable Peripheral Pulses: carotid (R): 2+, carotid (L): 2+ 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, 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 Exam: normal hearing, normal speech, PERRL, No abnormal eye position, No abnormal gag reflex, No facial asymmetry Motor/Sensory: no motor deficit, no sensory deficit, no pronator drift, negative Babinski's sign DTR: bicep (R): 2+, bicep (L): 2+ Skin Exam: normal color, warm, dry, No rash SpO2 Interpretation: normal SpO2: 96 O2 Delivery: Room Air - Course Nursing assessment & vital signs reviewed: Yes - CT Exams Head CT Interpretation: Tele-radiologist Report (CT head neg) Chest CT Interpretation: Tele-radiologist Report (L 7th nondisplaced rib fx) Ordered Tests: Active Orders 24 hr Category Date Time Status CHEST WITHOUT CONTRAST [CT] Stat Exams 10/24/20 01:10 Taken HEAD WITHOUT CONTRAST [CT] Stat Exams 10/24/20 01:03 Taken CBC W DIFF Stat Lab 10/24/20 01:30 Completed CMP Stat Lab 10/24/20 01:30 Completed UA W/RFX UR CULTURE Stat Lab 10/24/20 02:12 Completed Urine Triage Profile Stat Lab 10/24/20 02:12 Completed Medication Summary Discontinued Medications Generic Name Dose Route Start Last Admin Trade Name Freq PRN Reason Stop Dose Admin Phenytoin Sodium 1,000 mg/ 120 mls @ 240 mls/hr 10/24/20 02:27 10/24/20 02:31 Sodium Chloride IV 10/24/20 02:56 240 mls/hr STAT ONE Administration Sodium Chloride Confirm 10/24/20 02:30 Sodium Chloride 0.9% 100 Ml Bag Administered 10/24/20 02:31 Dose 100 mls @ ud .[facility]OU[facility] ONE Phenytoin Sodium Confirm 10/24/20 02:28 Dilantin Iv 250 Mg/5 Ml Administered 10/24/20 02:29 Dose 1,000 mg .ROUTE .[facility] ONE Lab/Rad Data: Laboratory Result Diagrams 10/24/20 01:30 10/24/20 01:30 Laboratory Results 10/24/20 10/24/20 10/24/20 Range/Units 02:12 02:12 01:30 WBC (4.0-10.5) K/mm3 RBC (4.1-5.6) M/mm3 Hgb (12.5-18.0) gm/dl Hct (42-50) % MCV (78-100) fl MCH (26-32) pg MCHC (32-36) g/dl RDW (11.5-14.0) % Plt Count (150-450) K/mm3 MPV (7.5-11.0) fl Gran % (36.0-66.0) % Eos # (Auto) (0-0.5) Absolute Lymphs (auto) (1.0-4.6) Absolute Monos (auto) (0.0-1.3) Lymphocytes % (24.0-44.0) % Monocytes % (0.0-12.0) % Eosinophils % (0.00-5.0) % Basophils % (0.0-0.4) % Absolute Granulocytes (1.4-6.9) Basophils # (0-0.4) Sodium (137-145) mmol/L Potassium (3.5-5.1) mmol/L Chloride (98-107) mmol/L Carbon Dioxide (22-30) mmol/L Anion Gap (5-15) MEQ/L BUN (9-20) mg/dL Creatinine (0.66-1.25) mg/dL Estimated GFR ML/MIN Glucose (74-106) mg/dL Calcium (8.4-10.2) mg/dL Total Bilirubin (0.2-1.3) mg/dL AST (17-59) U/L ALT (0-50) U/L Alkaline Phosphatase (38-126) U/L Serum Total Protein (6.3-8.2) g/dL Albumin (3.5-5.0) g/dL Urine Color YELLOW (YELLOW) Urine Appearance CLOUDY (CLEAR) Urine pH 7.0 (5-6) Ur Specific [place] 1.015 (1.005-1.025) Urine Protein 100 (Negative) Urine Ketones NEGATIVE (NEGATIVE) Urine Blood NEGATIVE (0-5) Lance/ul Urine Nitrite NEGATIVE (NEGATIVE) Urine Bilirubin NEGATIVE (NEGATIVE) Urine Urobilinogen NEGATIVE (0-1) mg/dL Ur Leukocyte Esterase NEGATIVE (NEGATIVE) Urine WBC (Auto) NONE (0-5) /HPF Urine RBC (Auto) NONE (0-2) /HPF U Epithel Cells (Auto) NONE (FEW) /HPF Urine Bacteria (Auto) NONE (NEGATIVE) /HPF Urine Mucus (Auto) SLIGHT (NEGATIVE) /HPF Urine Culture Reflexed NO (NO) Urine Glucose NEGATIVE (NEGATIVE) mg/dL Urine Opiates Level NEGATIVE (NEGATIVE) Ur Methadone NEGATIVE (NEGATIVE) Urine Barbiturates POSITIVE (NEGATIVE) Phenytoin 4.7 L (10-20) ug/mL Ur Phencyclidine (PCP) NEGATIVE (NEGATIVE) Urine Amphetamine NEGATIVE (NEGATIVE) U Benzodiazepine Level NEGATIVE (NEGATIVE) Urine Cocaine NEGATIVE (NEGATIVE) Urine Marijuana (THC) NEGATIVE (NEGATIVE) 10/24/20 10/24/20 Range/Units 01:30 01:30 WBC 9.2 (4.0-10.5) K/mm3 RBC 4.72 (4.1-5.6) M/mm3 Hgb 15.2 (12.5-18.0) gm/dl Hct 47.3 (42-50) % MCV 100.2 H (78-100) fl MCH 32.2 H (26-32) pg MCHC 32.1 (32-36) g/dl RDW 13.9 (11.5-14.0) % Plt Count 216 (150-450) K/mm3 MPV 9.2 (7.5-11.0) fl Gran % 75.6 H (36.0-66.0) % Eos # (Auto) 0.11 (0-0.5) Absolute Lymphs (auto) 1.03 (1.0-4.6) Absolute Monos (auto) 1.08 (0.0-1.3) Lymphocytes % 11.3 L (24.0-44.0) % Monocytes % 11.8 (0.0-12.0) % Eosinophils % 1.2 (0.00-5.0) % Basophils % 0.1 (0.0-0.4) % Absolute Granulocytes 6.92 H (1.4-6.9) Basophils # 0.01 (0-0.4) Sodium 137 (137-145) mmol/L Potassium 3.8 (3.5-5.1) mmol/L Chloride 106 (98-107) mmol/L Carbon Dioxide 20 L (22-30) mmol/L Anion Gap 14.4 (5-15) MEQ/L BUN 13 (9-20) mg/dL Creatinine 0.72 (0.66-1.25) mg/dL Estimated GFR > 60.0 ML/MIN Glucose 101 (74-106) mg/dL Calcium 8.7 (8.4-10.2) mg/dL Total Bilirubin 0.30 (0.2-1.3) mg/dL AST 31 (17-59) U/L ALT 30 (0-50) U/L Alkaline Phosphatase 86 (38-126) U/L Serum Total Protein 6.9 (6.3-8.2) g/dL Albumin 4.4 (3.5-5.0) g/dL Urine Color (YELLOW) Urine Appearance (CLEAR) Urine pH (5-6) Ur Specific [place] (1.005-1.025) Urine Protein (Negative) Urine Ketones (NEGATIVE) Urine Blood (0-5) Lance/ul Urine Nitrite (NEGATIVE) Urine Bilirubin (NEGATIVE) Urine Urobilinogen (0-1) mg/dL Ur Leukocyte Esterase (NEGATIVE) Urine WBC (Auto) (0-5) /HPF Urine RBC (Auto) (0-2) /HPF U Epithel Cells (Auto) (FEW) /HPF Urine Bacteria (Auto) (NEGATIVE) /HPF Urine Mucus (Auto) (NEGATIVE) /HPF Urine Culture Reflexed (NO) Urine Glucose (NEGATIVE) mg/dL Urine Opiates Level (NEGATIVE) Ur Methadone (NEGATIVE) Urine Barbiturates (NEGATIVE) Phenytoin (10-20) ug/mL Ur Phencyclidine (PCP) (NEGATIVE) Urine Amphetamine (NEGATIVE) U Benzodiazepine Level (NEGATIVE) Urine Cocaine (NEGATIVE) Urine Marijuana (THC) (NEGATIVE) - Progress Progress: improved Progress Note: 10/24/20 01:56 Pt had several small seizures in ER w spontaneous resolution lasting less than 1 minute. He maintained his airway during seizures w no post-ictal state observed after seizures. 10/24/20 02:58 1gm IV Dilantin in ER Pt became more awake, alert, and jovial in ER. 10/24/20 06:55 Discharged in stable condition w care home staff - Departure Departure Disposition: Retirement/[facility] Clinical Impression: Seizure disorder, Rib fractures Condition: Stable Critical Care Time: No Referrals: CHU LINTON MD [Primary Care Provider] - Instructions: Rib Fracture (DC), Seizures, Adult (DC) Additional Instructions: Continue current meds Follow up with Retirement nurse/physician Motrin/Tylenol for fractured left 7th rib fx
[2020-10-24 02:01] LABS: Absolute Neutrophil Ct (ANC) 6.92 (1.4-6.9); BASOPHIL % 0.1 % (0.0-0.4); Basophil (Absolute #) 0.01 (0-0.4); Eosinophil % 1.2 % (0.00-5.0); Eosinophil (Absolute #) 0.11 (0-0.5); Hematocrit 47.3 % (42-50); Hemoglobin 15.2 gm/dl (12.5-18.0); Lymphocyte (Absolute #) 1.03 (1.0-4.6); Lymphocytes % 11.3 % (24.0-44.0); Mean Cell Volume 100.2 fl (78-100); Mean Corpuscular Hemoglobin 32.2 pg (26-32); Mean Corpuscular Hgb Concent. 32.1 g/dl (32-36); Mean Platelet Volume 9.2 fl (7.5-11.0); Monocyte (Absolute #) 1.08 (0.0-1.3); Monocytes % 11.8 % (0.0-12.0); Neutrophil % 75.6 % (36.0-66.0); Platelet Count 216 K/mm3 (150-450); Red Blood Count 4.72 M/mm3 (4.1-5.6); Red Cell Distribution Width 13.9 % (11.5-14.0); White Blood Count 9.2 K/mm3 (4.0-10.5)
[2020-10-24 02:13] LABS: ALBUMIN 4.4 g/dL (3.5-5.0); ALKALINE PHOSPHATASE 86 U/L (38-126); ANION GAP 14.4 MEQ/L (5-15); BLOOD UREA NITROGEN 13 mg/dL (9-20); CHLORIDE 106 mmol/L (98-107); Calcium 8.7 mg/dL (8.4-10.2); Carbon Dioxide 20 mmol/L (22-30); Creatinine 1 0.72 mg/dL (0.66-1.25); EST GLOMERULAR FILTRATION RATE > 60.0 ML/MIN; Glucose 101 mg/dL (74-106); Potassium 3.8 mmol/L (3.5-5.1); SGOT/AST 31 U/L (17-59); SGPT/ALT 30 U/L (0-50); SODIUM 137 mmol/L (137-145); Total Protein 6.9 g/dL (6.3-8.2)
[2020-10-24] MEDS ORDERED: SODIUM CHLORIDE 0.9% IV ONE (02:27)
[2020-10-24] MEDS ORDERED: DILANTIN IV ONE (02:27)
[2020-10-24] MEDS ORDERED: DILANTIN IV 250 MG/5 ML ONE (02:28)
[2020-10-24] MEDS ORDERED: Sodium Chloride 0.9% 100 ML BAG 100 ML ONE (02:30)
[2020-10-24 02:32] LABS: Amphetamine,Urine NEGATIVE (NEGATIVE); Barbiturate,Urine POSITIVE (NEGATIVE); Benzodiazepine,Urine NEGATIVE (NEGATIVE); Cocaine,Urine NEGATIVE (NEGATIVE); Methadone,Urine NEGATIVE (NEGATIVE); Opiate,Urine NEGATIVE (NEGATIVE); PCP,Urine NEGATIVE (NEGATIVE); THC,Urine NEGATIVE (NEGATIVE)
[2020-10-24 02:52] LABS: Appearance CLOUDY (CLEAR); Bilirubin NEGATIVE (NEGATIVE); Blood NEGATIVE Ery/ul (0-5); Glucose NEGATIVE (NEGATIVE); Ketones NEGATIVE (NEGATIVE); Leukocyte Esterase NEGATIVE (NEGATIVE); Mucus SLIGHT /HPF (NEGATIVE); Nitrite NEGATIVE (NEGATIVE); Protein,Urine Dip 100 (Negative); Specific Gravity 1.015 (1.005-1.025); Urobilinogen NEGATIVE mg/dL (0-1)
[2020-10-24 03:10] VITALS: BP 112/72; PULSE 85
--- NOTE | 2020-10-24 09:14 | XRAY ---
Indication: Left chest pain. Seizure. Status post fall. Multiple contiguous axial images obtained through the chest without contrast. Comparison: None. Lungs inflated with mild bilateral dependent atelectasis, minimal left lower lobe subsegmental atelectasis/scarring, and a few tiny calcified granulomas. Heart not enlarged. Aorta is normal in course and caliber. Tiny left infrahilar calcified nodes. No pathologic mediastinal lymphadenopathy. Bony windows reveal tiny cortical fractures involving the anterior lateral left 4-7 ribs. Incidental left anterior chest wall vagus nerve stimulator device with lead terminating base of the left neck. Limited upper abdomen unremarkable. Impression: Tiny left 4/7 cortical rib fractures. Incidental granulomatous disease. Remaining CT chest without contrast exam negative. Comment: Preliminary interpretation was made by [facility]. No critical discrepancy.
--- NOTE | 2020-10-24 09:18 | XRAY ---
Indication: Seizure. Status post fall. Multiple contiguous axial images obtained through the head without contrast. Comparison: November 21, 2016. Normal appearing brain parenchyma, ventricles, and bony calvarium. Small left parietal scalp hematoma near the vertex. Visualized paranasal sinuses and mastoid air cells are clear. Impression: Small left parietal scalp hematoma. No underlying fracture or acute intracranial abnormalities. Comment: Preliminary interpretation was made by [facility]. No critical discrepancy.
== END 2020-10-24 03:22 | disposition home or self-care (01) ==
LOC: ED 00:56
DX: G40.909 Epilepsy, unspecified, not intractable, without status epilepticus (principal); S22.39XA Fracture of one rib, unspecified side, initial encounter for closed fracture; S27.9XXA Injury of unspecified intrathoracic organ, initial encounter; W19.XXXA Unspecified fall, initial encounter; Z79.899 Other long term (current) drug therapy; Y93.89 Activity, other specified; Y92.89 Other specified places as the place of occurrence of the external cause
CPT/HCPCS: 36000; 36415; 70450; 71250; 80053; 80185; 80307; 81001; 85025; 96365; 99284; J1165

== ENCOUNTER 2020-10-27 22:24 | Emergency (ER) | payer MEDICARE ==
--- NOTE | 2020-10-27 22:48 | ERPHSYRPT ---
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 It was not witnessed and unknown about loss of consciousness. Patient is back to normal. He is complaining of mild headache but denies any dizziness or lightheadedness. No neck pain. He has chest wall pain which is not any worse than usual. Denies any difficulty breathing but hurts because of recent rib fractures to take a deep breath. No injury anywhere else. Tetanus up-to-date. Occurred: just prior to arrival Severity: moderate Head Injury Location: frontal Method of Injury: fell Loss of Consciousness: unsure Associated Symptoms: headaches, seizure Allergies/Adverse Reactions: lorazepam [From Ativan] Allergy (Mild, Verified 09/26/20 12:00) Nausea Home Medications: Oxcarbazepine [Trileptal] 1,200 mg PO BID 11/21/16 [History] Phenobarb 32.4 mg [Phenobarbital 32.4 mg] 64.8 mg PO BID 11/21/16 [History] Phenytoin Sod Extended 100 mg* [Dilantin 100 MG] 100 mg PO BID 11/21/16 [History] Topiramate [Topamax] 200 mg PO BID 11/21/16 [History] Haloperidol 5 mg [Haldol 5 MG] 2.5 mg PO BID 02/16/17 [History] Fluoxetine HCl 40 mg PO DAILY 09/26/20 [History] Levetiracetam [Keppra] 1,500 mg PO BID 09/26/20 [History] Hx Tetanus, Diphtheria Vaccination/Date Given: Yes Hx Influenza Vaccination/Date Given: No Hx Pneumococcal Vaccination/Date Given: No Travel Risk - International Travel Have you traveled outside of the country in past 3 weeks: No - Coronavirus Screening Are you exhibiting any of the following symptoms?: No Close contact with a COVID-19 positive Pt in past 14-21 Days: No - Vaccine Status Have you recieved a Covid-19 vaccination: No - Review of Systems Constitutional: No Symptoms Eyes: No Symptoms Ears, Nose, & Throat: No Symptoms Respiratory: No Symptoms Cardiac: No Symptoms Abdominal/Gastrointestinal: No Symptoms Genitourinary Symptoms: No Symptoms Musculoskeletal: No Symptoms Skin: Skin Lesions Neurological: Headache Psychological: No Symptoms Endocrine: No Symptoms Hematologic/Lymphatic: No Symptoms Immunological/Allergic: No Symptoms - Past Medical History Pertinent Past Medical History: Yes Neurological History: Seizures ENT History: No Pertinent History Cardiac History: No Pertinent History Respiratory History: No Pertinent History Endocrine Medical History: No Pertinent History Musculoskeletal History: No Pertinent History GI Medical History: No Pertinent History History: No Pertinent History Psycho-Social History: Anxiety, Bipolar, Depression Male Reproductive Disorders: No Pertinent History - Past Surgical History Past Surgical History: Yes Neuro Surgical History: No Pertinent History Cardiac: No Pertinent History Respiratory: No Pertinent History Gastrointestinal: No Pertinent History Genitourinary: No Pertinent History Musculoskeletal: No Pertinent History Male Surgical History: No Pertinent History Other Surgical History: VNS Stimulator for seizures. (Internal Left Chest) - Social History Smoking Status: Light tobacco smoker Exposure to second hand smoke: No Alcohol Use: None Drug Use: none Patient Lives Alone: No Significant Family History: no pertinent family hx - Nursing Vital Signs Nursing Vital Signs: Initial Vital Signs Temperature 98.1 F 10/27/20 22:26 Pulse Rate 78 10/27/20 22:26 Respiratory Rate 18 10/27/20 22:26 Blood Pressure 145/102 10/27/20 22:26 O2 Sat by Pulse Oximetry 99 10/27/20 22:26 Pain Scale Pain Intensity 3 - Jony Coma Score Best Eye Response (Vale): (4) open spontaneously Best Verbal Response (Jony): (5) oriented Best Motor Response (Vale): (6) obeys commands Vale Total: 15 - Physical Exam General Appearance: no apparent distress, alert Head Injury: contusions, lacerations (4 cm laceration lateral aspect just above the left eyebrow. 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: normal hearing, normal speech, PERRL Coordination/Gait Exam: normal finger to nose, normal gait Motor/Sensory Exam: no motor deficit, no sensory deficit, no pronator drift, negative Babinski's sign Skin Exam: normal color SpO2 Interpretation: normal SpO2: 99 O2 Delivery: Room Air Procedures - Laceration/Wound Repair Left Frontal Time of Procedure: 23:18 Wound Location: Left, forehead Wound Length (cm): 4 Wound's Depth, Shape: into muscle Wound Explored: clean Irrigated: Yes Hibiclens Prep: Yes Anesthesia: 1% Lidocaine Volume Anesthetic (ccs): 3 Wound Repaired With: sutures Suture Size/Type: 5-0, prolene Number of Sutures: 8 Layer Closure?: No Sterile Dressing Applied?: Yes - Course EKG Interpreted by Me: RATE (79), Sinus Rhythm, NORMAL AXIS, NORMAL INTERVALS, NORMAL QRS Ordered Tests: Active Orders 24 hr Category Date Time Status IV Insertion STAT Care 10/27/20 22:51 Completed HEAD WITHOUT CONTRAST [CT] Stat Exams 10/27/20 22:43 Taken CBC W DIFF Stat Lab 10/27/20 22:50 Completed CMP Stat Lab 10/27/20 22:50 Completed Medication Summary Discontinued Medications Generic Name Dose Route Start Last Admin Trade Name Freq PRN Reason Stop Dose Admin Morphine Sulfate 4 mg 10/27/20 23:27 10/27/20 23:29 Morphine Sulfate 4 Mg Inj IV 10/27/20 23:28 4 mg STAT ONE Administration Morphine Sulfate Confirm 10/27/20 23:28 Morphine Sulfate 4 Mg Inj Administered 10/27/20 23:29 Dose 4 mg .ROUTE .STK-MED ONE Ondansetron HCl 4 mg 10/27/20 23:27 10/27/20 23:29 Zofran 4 Mg/2 Ml Vial IV 10/27/20 23:28 4 mg STAT ONE Administration Ondansetron HCl Confirm 10/27/20 23:28 Zofran 4 Mg/2 Ml Vial Administered 10/27/20 23:29 Dose 4 mg .ROUTE .STK-MED ONE Lab/Rad Data: Laboratory Result Diagrams 10/27/20 22:50 10/27/20 22:50 Laboratory Results 10/27/20 10/27/20 10/27/20 Range/Units 22:50 22:50 22:50 WBC 8.2 (4.0-10.5) K/mm3 RBC 4.96 (4.1-5.6) M/mm3 Hgb 15.8 (12.5-18.0) gm/dl Hct 49.4 (42-50) % MCV 99.6 (78-100) fl MCH 31.9 (26-32) pg MCHC 32.0 (32-36) g/dl RDW 13.7 (11.5-14.0) % Plt Count 241 (150-450) K/mm3 MPV 9.2 (7.5-11.0) fl Gran % 63.7 (36.0-66.0) % Eos # (Auto) 0.21 (0-0.5) Absolute Lymphs (auto) 1.70 (1.0-4.6) Absolute Monos (auto) 1.07 (0.0-1.3) Lymphocytes % 20.6 L (24.0-44.0) % Monocytes % 13.0 H (0.0-12.0) % Eosinophils % 2.5 (0.00-5.0) % Basophils % 0.2 (0.0-0.4) % Absolute Granulocytes 5.24 (1.4-6.9) Basophils # 0.02 (0-0.4) Sodium 140 (137-145) mmol/L Potassium 4.2 (3.5-5.1) mmol/L Chloride 106 (98-107) mmol/L Carbon Dioxide 23 (22-30) mmol/L Anion Gap 16.2 H (5-15) MEQ/L BUN 7 L (9-20) mg/dL Creatinine 0.68 (0.66-1.25) mg/dL Estimated GFR > 60.0 ML/MIN Glucose 98 (74-106) mg/dL Calcium 8.8 (8.4-10.2) mg/dL Total Bilirubin 0.50 (0.2-1.3) mg/dL AST 37 (17-59) U/L ALT 29 (0-50) U/L Alkaline Phosphatase 80 (38-126) U/L Serum Total Protein 7.5 (6.3-8.2) g/dL Albumin 4.7 (3.5-5.0) g/dL Phenytoin 10.0 (10-20) ug/mL - Progress Progress: improved, re-examined Progress Note: Pain medication CT head is negative for any acute intracranial finding, skull fracture. Stable blood work, normal Dilantin level. Laceration is repaired. Outpatient follow-up recommended. Counseled pt/family regarding: lab results, diagnosis, need for follow-up, rad results - Departure Departure Disposition: [facility] Clinical Impression: Seizure disorder Forehead laceration Qualifiers: Encounter type: initial encounter Qualified Code(s): S01.81XA - Laceration without foreign body of other part of head, initial encounter Condition: Stable Critical Care Time: No Referrals: CHU LINTON MD [Primary Care Provider] - Follow Up with PCP/3 days Instructions: Laceration Repair With Stitches (DC) Additional Instructions: Take Tylenol as needed for pain. Keep it clean. Follow-up with primary care physician for reevaluation and suture removal in 5 to 7 days. Continue with your seizure medication. Return to ER for worsening pain, swelling, discharge are intractable headache.
[2020-10-27 22:57] LABS: Absolute Neutrophil Ct (ANC) 5.24 (1.4-6.9); BASOPHIL % 0.2 % (0.0-0.4); Basophil (Absolute #) 0.02 (0-0.4); Eosinophil % 2.5 % (0.00-5.0); Eosinophil (Absolute #) 0.21 (0-0.5); Hematocrit 49.4 % (42-50); Hemoglobin 15.8 gm/dl (12.5-18.0); Lymphocytes % 20.6 % (24.0-44.0); Mean Cell Volume 99.6 fl (78-100); Mean Corpuscular Hemoglobin 31.9 pg (26-32); Mean Platelet Volume 9.2 fl (7.5-11.0); Monocyte (Absolute #) 1.07 (0.0-1.3); Neutrophil % 63.7 % (36.0-66.0); Platelet Count 241 K/mm3 (150-450); Red Blood Count 4.96 M/mm3 (4.1-5.6); Red Cell Distribution Width 13.7 % (11.5-14.0); White Blood Count 8.2 K/mm3 (4.0-10.5)
[2020-10-27 23:15] LABS: ALBUMIN 4.7 g/dL (3.5-5.0); ALKALINE PHOSPHATASE 80 U/L (38-126); ANION GAP 16.2 MEQ/L (5-15); BLOOD UREA NITROGEN 7 mg/dL (9-20); CHLORIDE 106 mmol/L (98-107); Calcium 8.8 mg/dL (8.4-10.2); Carbon Dioxide 23 mmol/L (22-30); Creatinine 1 0.68 mg/dL (0.66-1.25); EST GLOMERULAR FILTRATION RATE > 60.0 ML/MIN; Glucose 98 mg/dL (74-106); Potassium 4.2 mmol/L (3.5-5.1); SGOT/AST 37 U/L (17-59); SGPT/ALT 29 U/L (0-50); SODIUM 140 mmol/L (137-145); Total Protein 7.5 g/dL (6.3-8.2)
[2020-10-27] MEDS ORDERED: MORPHINE SULFATE 4 MG INJ ONE (23:28)
[2020-10-27] MEDS ORDERED: Zofran 4 MG/2 ML VIAL ONE (23:28)
[2020-10-27] MEDS: Zofran 4 MG/2 ML VIAL IV ONE (23:29)
[2020-10-27] MEDS: MORPHINE SULFATE 4 MG INJ IV ONE (23:29)
[2020-10-28 00:19] VITALS: BP 165/90; PULSE 70
[2020-10-28 00:39] VITALS: O2SAT 99
--- NOTE | 2020-10-28 07:17 | XRAY ---
Indication: Seizure. Fall with left frontal head injury. Multiple contiguous axial images obtained through the head without contrast. Comparison: October 24, 2020. Normal appearing brain parenchyma, ventricles, and bony calvarium. New small left frontal parietal scalp hematoma. Visualized paranasal sinuses and mastoid air cells are clear. Impression: New left scalp hematoma. No underlying fracture or acute intracranial abnormalities. Comment: Preliminary interpretation was made by [facility]. No critical discrepancy.
== END 2020-10-28 00:20 | disposition home or self-care (01) ==
LOC: ED 22:24
DX: S01.81XA Laceration without foreign body of other part of head, initial encounter (principal); G40.909 Epilepsy, unspecified, not intractable, without status epilepticus; W01.198A Fall on same level from slipping, tripping and stumbling with subsequent striking against other object, initial encounter; Y93.89 Activity, other specified; Y92.89 Other specified places as the place of occurrence of the external cause; Z79.899 Other long term (current) drug therapy; F31.9 Bipolar disorder, unspecified
CPT/HCPCS: 12014; 36000; 36415; 70450; 80053; 80185; 85025; 96374; 99284; J2270; J2405

== ENCOUNTER 2020-12-20 09:52 | Observation (INO) | payer MEDICARE, OTHER ==
--- NOTE | 2020-12-20 10:09 | ERPHSYRPT ---
- History of Present Illness Time Seen by Provider: 12/20/20 10:04 Source: patient, EMS, police Exam Limitations: no limitations Physician History: This is a 35-year-old white male patient of Dr. Linton who has a history of anxiety, bipolar disorder, depression, seizure disorder and is a resident of local group home and presents to the emergency department with altered mental status. Apparently, he has had altered mental status for approximately 2 weeks. He is taking Keppra, phenobarbital, Dilantin and Haldol per his medication list at the group home. Patient denies head injury. Timing/Duration: week(s) (2) Severity: moderate Character of Deficits: other (Altered mental status) Deficits: cannot stand, cannot walk Baseline/Normal Cognition: alert oriented x 3 Current Cognition: poor alertness Baseline Gait: walks w/o assistance Associated Symptoms: seizures, other (Lethargic, poor alertness) Allergies/Adverse Reactions: lorazepam [From Ativan] Allergy (Mild, Verified 12/20/20 10:29) Nausea Home Medications: Oxcarbazepine [Trileptal] 600 mg PO BID 11/21/16 [History] Phenobarb 32.4 mg [Phenobarbital 32.4 mg] 32.4 mg PO BID 11/21/16 [History] Phenytoin Sod Extended 100 mg* [Dilantin 100 MG] 100 mg PO BID 11/21/16 [History] Topiramate [Topamax] 200 mg PO BID 11/21/16 [History] Haloperidol 5 mg [Haldol 5 MG] 2.5 mg PO BID 02/16/17 [History] Fluoxetine HCl 40 mg PO DAILY 09/26/20 [History] Levetiracetam [Keppra] 1,500 mg PO BID 09/26/20 [History] Hx Tetanus, Diphtheria Vaccination/Date Given: Yes Hx Influenza Vaccination/Date Given: No Hx Pneumococcal Vaccination/Date Given: No Travel Risk - International Travel Have you traveled outside of the country in past 3 weeks: No - Coronavirus Screening Are you exhibiting any of the following symptoms?: No Close contact with a COVID-19 positive Pt in past 14-21 Days: No - Vaccine Status Have you recieved a Covid-19 vaccination: No - Review of Systems Constitutional: Lethargy Eyes: No Symptoms Ears, Nose, & Throat: No Symptoms Respiratory: No Symptoms Cardiac: No Symptoms Abdominal/Gastrointestinal: No Symptoms Genitourinary Symptoms: No Symptoms Musculoskeletal: No Symptoms Skin: No Symptoms Neurological: Lethargy Psychological: No Symptoms Endocrine: No Symptoms Hematologic/Lymphatic: No Symptoms Immunological/Allergic: No Symptoms All Other Systems: Reviewed and Negative - Past Medical History Pertinent Past Medical History: Yes Neurological History: Seizures ENT History: No Pertinent History Cardiac History: No Pertinent History Respiratory History: No Pertinent History Endocrine Medical History: No Pertinent History Musculoskeletal History: No Pertinent History GI Medical History: No Pertinent History History: No Pertinent History Psycho-Social History: Anxiety, Bipolar, Depression Male Reproductive Disorders: No Pertinent History - Past Surgical History Past Surgical History: Yes Neuro Surgical History: No Pertinent History Cardiac: No Pertinent History Respiratory: No Pertinent History Gastrointestinal: No Pertinent History Genitourinary: No Pertinent History Musculoskeletal: No Pertinent History Male Surgical History: No Pertinent History Other Surgical History: VNS Stimulator for seizures. (Internal Left Chest) - Social History Smoking Status: Light tobacco smoker Exposure to second hand smoke: No Alcohol Use: None Drug Use: none Patient Lives Alone: No Significant Family History: no pertinent family hx - Nursing Vital Signs Nursing Vital Signs: Initial Vital Signs Pulse Rate 82 12/20/20 10:03 Respiratory Rate 12 12/20/20 10:03 Blood Pressure 139/103 12/20/20 10:03 O2 Sat by Pulse Oximetry 98 12/20/20 10:03 Pain Scale Pain Intensity 0 - Sibley Coma Scale Best Eye Response (Sibley): (3) open to voice Best Verbal Response (Jony): (4) confused conversation Best Motor Response (Jony): (5) localizes to pain Sibley Total: 12 - Physical Exam General Appearance: lethargy Eye Exam: bilateral eye: normal inspection, PERRL, EOMI Ears, Nose, Throat Exam: normal ENT inspection, moist mucous membranes Neck Exam: normal inspection, non-tender, supple, full range of motion Respiratory: normal breath sounds, lungs clear, airway intact, No chest tenderness, No respiratory distress Cardiovascular: regular rate/rhythm, normal heart sounds, normal peripheral pulses Gastrointestinal: soft, normal bowel sounds, No tenderness Rectal Exam: not done Back Exam: normal inspection, normal range of motion, No CVA tenderness, No vertebral tenderness Extremity Exam: normal inspection, normal range of motion, pelvis stable Mental Status: 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 Care 12/20/20 10:12 Active Cath for Specimen-Straight STAT Care 12/20/20 10:12 Active EKG-ER Only STAT Care 12/20/20 10:11 Active IV Insertion STAT Care 12/20/20 10:11 Active Pulse Oximetry (ED) STAT Care 12/20/20 10:11 Active HEAD WITHOUT CONTRAST [CT] Stat Exams 12/20/20 10:12 Completed CBC W DIFF Stat Lab 12/20/20 10:38 Completed CMP Stat Lab 12/20/20 10:38 Completed UA W/RFX UR CULTURE Stat Lab 12/20/20 10:23 Completed Urine Triage Profile Stat Lab 12/20/20 10:23 Completed Lab/Rad Data: Laboratory Result Diagrams 12/20/20 10:38 12/20/20 10:38 Laboratory Results 12/20/20 12/20/20 12/20/20 Range/Units 10:38 10:38 10:38 WBC (4.0-10.5) K/mm3 RBC (4.1-5.6) M/mm3 Hgb (12.5-18.0) gm/dl Hct (42-50) % MCV (78-100) fl MCH (26-32) pg MCHC (32-36) g/dl RDW (11.5-14.0) % Plt Count (150-450) K/mm3 MPV (7.5-11.0) fl Gran % (36.0-66.0) % Eos # (Auto) (0-0.5) Absolute Lymphs (auto) (1.0-4.6) Absolute Monos (auto) (0.0-1.3) Lymphocytes % (24.0-44.0) % Monocytes % (0.0-12.0) % Eosinophils % (0.00-5.0) % Basophils % (0.0-0.4) % Absolute Granulocytes (1.4-6.9) Basophils # (0-0.4) Sodium 144 (137-145) mmol/L Potassium 3.6 (3.5-5.1) mmol/L Chloride 106 (98-107) mmol/L Carbon Dioxide 25 (22-30) mmol/L Anion Gap 15.9 H (5-15) MEQ/L BUN 15 (9-20) mg/dL Creatinine 0.77 (0.66-1.25) mg/dL Estimated GFR > 60.0 ML/MIN Glucose 117 H (74-106) mg/dL Calcium 9.0 (8.4-10.2) mg/dL Total Bilirubin 0.30 (0.2-1.3) mg/dL AST 28 (17-59) U/L ALT 20 (0-50) U/L Alkaline Phosphatase 120 (38-126) U/L Ammonia 63 H (9-30) umol/L Serum Total Protein 7.3 (6.3-8.2) g/dL Albumin 4.6 (3.5-5.0) g/dL Urine Color (YELLOW) Urine Appearance (CLEAR) Urine pH (5-6) Ur Specific [place] (1.005-1.025) Urine Protein (Negative) Urine Ketones (NEGATIVE) Urine Blood (0-5) Lance/ul Urine Nitrite (NEGATIVE) Urine Bilirubin (NEGATIVE) Urine Urobilinogen (0-1) mg/dL Ur Leukocyte Esterase (NEGATIVE) Urine WBC (Auto) (0-5) /HPF Urine RBC (Auto) (0-2) /HPF Urine Mucus (Auto) (NEGATIVE) /HPF Urine Culture Reflexed (NO) Urine Glucose (NEGATIVE) mg/dL Urine Opiates Level (NEGATIVE) Ur Methadone (NEGATIVE) Urine Barbiturates (NEGATIVE) Phenytoin 14.6 (10-20) ug/mL Ur Phencyclidine (PCP) (NEGATIVE) Urine Amphetamine (NEGATIVE) U Benzodiazepine Level (NEGATIVE) Urine Cocaine (NEGATIVE) Urine Marijuana (THC) (NEGATIVE) 12/20/20 12/20/20 12/20/20 Range/Units 10:38 10:23 10:23 WBC 6.7 (4.0-10.5) K/mm3 RBC 5.27 (4.1-5.6) M/mm3 Hgb 17.1 (12.5-18.0) gm/dl Hct 53.5 H (42-50) % MCV 101.5 H (78-100) fl MCH 32.4 H (26-32) pg MCHC 32.0 (32-36) g/dl RDW 13.3 (11.5-14.0) % Plt Count 203 (150-450) K/mm3 MPV 9.4 (7.5-11.0) fl Gran % 55.0 (36.0-66.0) % Eos # (Auto) 0.18 (0-0.5) Absolute Lymphs (auto) 1.71 (1.0-4.6) Absolute Monos (auto) 1.12 (0.0-1.3) Lymphocytes % 25.4 (24.0-44.0) % Monocytes % 16.6 H (0.0-12.0) % Eosinophils % 2.7 (0.00-5.0) % Basophils % 0.3 (0.0-0.4) % Absolute Granulocytes 3.71 (1.4-6.9) Basophils # 0.02 (0-0.4) Sodium (137-145) mmol/L Potassium (3.5-5.1) mmol/L Chloride (98-107) mmol/L Carbon Dioxide (22-30) mmol/L Anion Gap (5-15) MEQ/L BUN (9-20) mg/dL Creatinine (0.66-1.25) mg/dL Estimated GFR ML/MIN Glucose (74-106) mg/dL Calcium (8.4-10.2) mg/dL Total Bilirubin (0.2-1.3) mg/dL AST (17-59) U/L ALT (0-50) U/L Alkaline Phosphatase (38-126) U/L Ammonia (9-30) umol/L Serum Total Protein (6.3-8.2) g/dL Albumin (3.5-5.0) g/dL Urine Color EUNICE (YELLOW) Urine Appearance CLEAR (CLEAR) Urine pH 5.0 (5-6) Ur Specific [place] 1.020 (1.005-1.025) Urine Protein 30 (Negative) Urine Ketones NEGATIVE (NEGATIVE) Urine Blood NEGATIVE (0-5) Lance/ul Urine Nitrite NEGATIVE (NEGATIVE) Urine Bilirubin NEGATIVE (NEGATIVE) Urine Urobilinogen 4 (0-1) mg/dL Ur Leukocyte Esterase NEGATIVE (NEGATIVE) Urine WBC (Auto) 0-2 (0-5) /HPF Urine RBC (Auto) NONE (0-2) /HPF Urine Mucus (Auto) SLIGHT (NEGATIVE) /HPF Urine Culture Reflexed NO (NO) Urine Glucose NEGATIVE (NEGATIVE) mg/dL Urine Opiates Level NEGATIVE (NEGATIVE) Ur Methadone NEGATIVE (NEGATIVE) Urine Barbiturates POSITIVE (NEGATIVE) Phenytoin (10-20) ug/mL Ur Phencyclidine (PCP) NEGATIVE (NEGATIVE) Urine Amphetamine NEGATIVE (NEGATIVE) U Benzodiazepine Level NEGATIVE (NEGATIVE) Urine Cocaine NEGATIVE (NEGATIVE) Urine Marijuana (THC) NEGATIVE (NEGATIVE) - Progress Progress: unchanged, re-examined Progress Note: 12/20/20 11:20 CAT scan of the head without contrast shows no acute intracranial abnormality 12/20/20 12:[address] Linton and reviewed the patient history, physical findings, laboratory results and results of the CAT scan of the head without contrast. He agrees that the patient should be placed in observation. We will hold any sedating medications at this time. We will place him on a telemetry bed. Discussed with : Elise Counseled pt/family regarding: lab results, diagnosis, need for follow-up, karina briones - Departure Departure Disposition: Observation Clinical Impression: Altered mental status Condition: Stable Critical Care Time: No Referrals: CHU LINTON MD [Primary Care Provider] -
[2020-12-20 10:38] LABS: Absolute Neutrophil Ct (ANC) 3.71 (1.4-6.9); BASOPHIL % 0.3 % (0.0-0.4); Basophil (Absolute #) 0.02 (0-0.4); Eosinophil % 2.7 % (0.00-5.0); Eosinophil (Absolute #) 0.18 (0-0.5); Hematocrit 53.5 % (42-50); Hemoglobin 17.1 gm/dl (12.5-18.0); Lymphocyte (Absolute #) 1.71 (1.0-4.6); Lymphocytes % 25.4 % (24.0-44.0); Mean Cell Volume 101.5 fl (78-100); Mean Corpuscular Hemoglobin 32.4 pg (26-32); Mean Platelet Volume 9.4 fl (7.5-11.0); Monocyte (Absolute #) 1.12 (0.0-1.3); Monocytes % 16.6 % (0.0-12.0); Platelet Count 203 K/mm3 (150-450); Red Blood Count 5.27 M/mm3 (4.1-5.6); Red Cell Distribution Width 13.3 % (11.5-14.0); White Blood Count 6.7 K/mm3 (4.0-10.5)
[2020-12-20 10:45] LABS: Appearance CLEAR (CLEAR); Bilirubin NEGATIVE (NEGATIVE); Blood NEGATIVE Ery/ul (0-5); Glucose NEGATIVE (NEGATIVE); Ketones NEGATIVE (NEGATIVE); Leukocyte Esterase NEGATIVE (NEGATIVE); Mucus SLIGHT /HPF (NEGATIVE); Nitrite NEGATIVE (NEGATIVE); Protein,Urine Dip 30 (Negative); Urobilinogen 4 mg/dL (0-1); WBC 0-2 /HPF (0-5)
[2020-12-20 11:06] LABS: Amphetamine,Urine NEGATIVE (NEGATIVE); Barbiturate,Urine POSITIVE (NEGATIVE); Benzodiazepine,Urine NEGATIVE (NEGATIVE); Cocaine,Urine NEGATIVE (NEGATIVE); Methadone,Urine NEGATIVE (NEGATIVE); Opiate,Urine NEGATIVE (NEGATIVE); PCP,Urine NEGATIVE (NEGATIVE); THC,Urine NEGATIVE (NEGATIVE)
--- NOTE | 2020-12-20 11:11 | XRAY ---
Exam: CT of the head without IV contrast from 12/20/2020. CTDI: 53.92 mGy Comparison: CT of the head without IV contrast from 10/27/2020. Indication: 35-year-old male with altered mental status. Technique: Non-IV contrast axial images were obtained through the brain. Reconstructed coronal and sagittal images were created and reviewed. Findings: The ventricles are of normal size and configuration. No focal mass effect or midline shift is seen. There is no evidence of acute intracranial bleed or abnormal extra-axial fluid collection. The albert matter-white matter interfaces appear unremarkable. No abnormal low-attenuation lesion is seen to suggest focal edema or infarct. The cortical sulci and basilar cisterns appear unremarkable. Prior left frontal scalp hematoma has resolved in the interim. The calvarium of the skull appears intact. The visualized paranasal sinuses are clear. The mastoid air cells are clear without effusion. The middle ear cavities appear unremarkable bilaterally. The internal auditory canals appear symmetric. Some dental amalgam causes CT artifact on the first couple images. Impression: 1. No acute intracranial bleed or other acute intracranial process is seen.
[2020-12-20 11:18] LABS: ALBUMIN 4.6 g/dL (3.5-5.0); ALKALINE PHOSPHATASE 120 U/L (38-126); ANION GAP 15.9 MEQ/L (5-15); BLOOD UREA NITROGEN 15 mg/dL (9-20); CHLORIDE 106 mmol/L (98-107); Carbon Dioxide 25 mmol/L (22-30); Creatinine 1 0.77 mg/dL (0.66-1.25); EST GLOMERULAR FILTRATION RATE > 60.0 ML/MIN; Glucose 117 mg/dL (74-106); Potassium 3.6 mmol/L (3.5-5.1); SGOT/AST 28 U/L (17-59); SGPT/ALT 20 U/L (0-50); SODIUM 144 mmol/L (137-145); Total Protein 7.3 g/dL (6.3-8.2)
[2020-12-20] MEDS ORDERED: FEVERALL 650 MG PR PRN (14:36)
[2020-12-20] MEDS: Sodium Chloride 0.9% 1000 ML 1,000 ML IV SCH (18:33)
[2020-12-20] MEDS ORDERED: LEVETIRACETAM 1500 MG PO SCH (22:00)
[2020-12-20] MEDS ORDERED: NON-FORMULARY ITEM (Topiramate [Topamax] 200 MG) PO SCH (22:00)
[2020-12-20] MEDS ORDERED: OXCARBAZEPINE 1200 MG PO SCH (22:00)
[2020-12-20] MEDS: KEPPRA 500 MG PO SCH (22:01)
[2020-12-20] MEDS: Dilantin 100 MG PO SCH (22:01)
[2020-12-20] MEDS: TOPIRAMATE PO SCH (22:02)
[2020-12-20] MEDS: PHENOBARBITAL 32.4 MG PO SCH (22:02)
[2020-12-20] MEDS: Trileptal 300 MG Tablet PO SCH (22:02)
[2020-12-20] MEDS: Haldol 5 MG PO SCH (22:09)
[2020-12-21] MEDS: Sodium Chloride 0.9% 1000 ML 1,000 ML IV SCH (03:42)
[2020-12-21 04:57] LABS: Absolute Neutrophil Ct (ANC) 4.31 (1.4-6.9); BASOPHIL % 0.2 % (0.0-0.4); Basophil (Absolute #) 0.01 (0-0.4); Eosinophil % 2.6 % (0.00-5.0); Eosinophil (Absolute #) 0.16 (0-0.5); Hematocrit 48.3 % (42-50); Hemoglobin 15.8 gm/dl (12.5-18.0); Lymphocyte (Absolute #) 1.05 (1.0-4.6); Lymphocytes % 17.2 % (24.0-44.0); Mean Corpuscular Hemoglobin 32.7 pg (26-32); Mean Corpuscular Hgb Concent. 32.7 g/dl (32-36); Mean Platelet Volume 9.2 fl (7.5-11.0); Monocyte (Absolute #) 0.59 (0.0-1.3); Monocytes % 9.6 % (0.0-12.0); Neutrophil % 70.4 % (36.0-66.0); Platelet Count 172 K/mm3 (150-450); Red Blood Count 4.83 M/mm3 (4.1-5.6); Red Cell Distribution Width 13.5 % (11.5-14.0); White Blood Count 6.1 K/mm3 (4.0-10.5)
[2020-12-21 05:13] LABS: ANION GAP 17.3 MEQ/L (5-15); BLOOD UREA NITROGEN 15 mg/dL (9-20); CHLORIDE 109 mmol/L (98-107); Calcium 8.5 mg/dL (8.4-10.2); Carbon Dioxide 20 mmol/L (22-30); EST GLOMERULAR FILTRATION RATE > 60.0 ML/MIN; Glucose 96 mg/dL (74-106); Potassium 3.7 mmol/L (3.5-5.1); SODIUM 143 mmol/L (137-145)
[2020-12-21] MEDS ORDERED: NON-FORMULARY ITEM (Fluoxetine Hcl [Fluoxetine Hcl] 40 MG) PO SCH (10:00)
[2020-12-21] MEDS ORDERED: Prozac 20 MG PO SCH (10:00)
[2020-12-21] MEDS ORDERED: PHENOBARBITAL 32.4 MG PO SCH ×2 (11:00→22:00)
[2020-12-21] MEDS: Dilantin 100 MG PO SCH (11:02)
[2020-12-21] MEDS: Haldol 5 MG PO SCH (11:03)
[2020-12-21] MEDS: TOPIRAMATE PO SCH (11:04)
[2020-12-21] MEDS: KEPPRA 500 MG PO SCH (11:04)
[2020-12-21] MEDS: Trileptal 300 MG Tablet PO SCH (11:05)
[2020-12-21] MEDS: PHENOBARBITAL 32.4 MG PO SCH (11:32)
[2020-12-21 12:04] VITALS: BP 120/69; PULSE 88; O2SAT 95
--- NOTE | 2020-12-21 21:47 | PCM.SSS ---
History of Present Illness - Chief Complaint Chief Complaint: Altered mental status for 1 day History of Present Illness: is a 35 year old male.who has a history of anxiety, bipolar disorder, depression, seizure disorder and is a resident of local care home and presents to the emergency department with altered mental status. Apparently, he has had altered mental status for approximately 2 weeks. He is taking Keppra, phenobarbital, Dilantin and Haldol per his medication list at the care home. Patient denies head injury. Timing/Duration: week(s) (2) Severity: moderate Character of Deficits: other (Altered mental status) Deficits: cannot stand, cannot walk Baseline/Normal Cognition: alert oriented x 3 Current Cognition: poor alertness Baseline Gait: walks w/o assistance Associated Symptoms: seizures, other (Lethargic, poor alertness) - Review of Systems Constitutional: Lethargy, No Fever, No Chills Eyes: No Symptoms Ears, Nose, & Throat: No Symptoms Respiratory: No Cough, No Short Of Breath Cardiac: No Chest Pain, No Edema, No Syncope Abdominal/Gastrointestinal: No Abdominal Pain, No Nausea, No Vomiting, No Betty rrhea Genitourinary Symptoms: No Dysuria Musculoskeletal: No Back Pain, No Neck Pain Skin: No Rash Neurological: No Dizziness, No Focal Weakness, No Sensory Changes Psychological: No Symptoms Endocrine: No Symptoms Hematologic/Lymphatic: No Symptoms Immunological/Allergic: No Symptoms Medications & Allergies Home Medications: Home Medication List Oxcarbazepine [Trileptal] 1,200 mg PO BID 11/21/16 [History Confirmed 12/20/20] Phenobarb 32.4 mg [Phenobarbital 32.4 mg] 32.4 mg PO BID 11/21/16 [History Confirmed 12/20/20] Phenytoin Sod Extended 100 mg* [Dilantin 100 MG] 200 mg PO BID 11/21/16 [History Confirmed 12/20/20] Topiramate [Topamax] 200 mg PO BID 11/21/16 [History Confirmed 12/20/20] Fluoxetine HCl 40 mg PO DAILY 09/26/20 [History Confirmed 12/20/20] Levetiracetam [Keppra] 1,500 mg PO BID 09/26/20 [History Confirmed 12/20/20] Haloperidol 5 mg [Haldol 5 MG] 2.5 mg PO BID PRN PRN #0 12/21/20 [Rx Confirmed 12/20/20] Allergies/Adverse Reactions: Allergies Allergy/AdvReac Type Severity Reaction Status Date / Time lorazepam [From Ativan] Allergy Mild Nausea Verified 12/20/20 10:29 - Past Medical History Past Medical History: Yes Neurological History: Seizures ENT History: No Pertinent History Cardiac History: No Pertinent History Respiratory History: No Pertinent History Endocrine Medical History: No Pertinent History Musculoskelatal History: No Pertinent History GI Medical History: No Pertinent History History: No Pertinent History Pyscho-Social History: Anxiety, Bipolar, Depression Male Reproductive Disorders: No Pertinent History - Past Surgical History Past Surgical History: Yes Neuro Surgical History: No Pertinent History Cardiac History: No Pertinent History Respiratory Surgery: No Pertinent History GI Surgical History: No Pertinent History Genitourinary Surgical Hx: No Pertinent History Musculskeletal Surgical Hx: No Pertinent History Male Surgical History: No Pertinent History Other Surgical History: VNS Stimulator for seizures. (Internal Left Chest) - Social History Smoking Status: Former smoker Exposure to second hand smoke: No Alcohol: None Drug Use: none Significant Family History: no pertinent family hx - Physical Exam Vital Signs: Vital Signs - 24 hr Temp Pulse Resp BP Pulse Ox 12/21/20 12:00 96.2 F 88 16 120/69 95 12/21/20 07:00 98.0 F 82 16 120/84 97 12/21/20 06:51 96 12/21/20 04:00 97.9 F 80 16 120/66 96 12/20/20 23:32 97.2 F 80 16 114/76 95 General Appearance: no apparent distress, alert, lethargy Neurologic Exam: alert, oriented x 3, cooperative, normal mood/affect, nml cerebellar function, nml station & gait, sensation nml, No motor deficits Eye Exam: PERRL/EOMI, eyes nml inspection Ears, Nose, Throat Exam: normal ENT inspection, TMs normal, pharynx normal, moist mucous membranes Neck Exam: normal inspection, non-tender, supple, full range of motion Respiratory Exam: normal breath sounds, lungs clear, No respiratory distress Cardiovascular Exam: regular rate/rhythm, normal heart sounds, normal peripheral pulses Gastrointestinal/Abdomen Exam: soft, normal bowel sounds, No tenderness, No mass Back Exam: normal inspection, normal range of motion, No CVA tenderness, No vertebral tenderness Extremity Exam: normal inspection, normal range of motion, pelvis stable Skin Exam: normal color, warm, dry, No rash Lymphatic Exam: No adenopathy Results - Labs Lab/Micro Results: Lab Results-Last 24 Hours 12/20/20 12/21/20 12/21/20 Range/Units 10:38 04:48 04:48 WBC 6.1 (4.0-10.5) K/mm3 RBC 4.83 (4.1-5.6) M/mm3 Hgb 15.8 (12.5-18.0) gm/dl Hct 48.3 (42-50) % MCV 100.0 (78-100) fl MCH 32.7 H (26-32) pg MCHC 32.7 (32-36) g/dl RDW 13.5 (11.5-14.0) % Plt Count 172 (150-450) K/mm3 MPV 9.2 (7.5-11.0) fl Gran % 70.4 H (36.0-66.0) % Eos # (Auto) 0.16 (0-0.5) Absolute Lymphs (auto) 1.05 (1.0-4.6) Absolute Monos (auto) 0.59 (0.0-1.3) Lymphocytes % 17.2 L (24.0-44.0) % Monocytes % 9.6 (0.0-12.0) % Eosinophils % 2.6 (0.00-5.0) % Basophils % 0.2 (0.0-0.4) % Absolute Granulocytes 4.31 (1.4-6.9) Basophils # 0.01 (0-0.4) Sodium 143 (137-145) mmol/L Potassium 3.7 (3.5-5.1) mmol/L Chloride 109 H (98-107) mmol/L Carbon Dioxide 20 L (22-30) mmol/L Anion Gap 17.3 H (5-15) MEQ/L BUN 15 (9-20) mg/dL Creatinine 0.80 (0.66-1.25) mg/dL Estimated GFR > 60.0 ML/MIN Glucose 96 (74-106) mg/dL Calcium 8.5 (8.4-10.2) mg/dL Prolactin 11.9 (4.0-15.2) ng/mL - Radiology Impressions Radiology Exams & Impressions: Radiology Procedures Category Date Time Status HEAD WITHOUT CONTRAST [CT] Stat Exams 12/20/20 10:12 Completed Assessment/Plan (1) Altered mental status Status: Acute Qualifiers: Altered mental status type: somnolence Qualified Code(s): R40.0 - Somnolence Assessment & Plan: Chief Complaint Diagnosis Altered mental status Allergies Allergy/AdvReac Type Severity Reaction Status Date / Time lorazepam [From Ativan] Allergy Mild Nausea Verified 12/20/20 10:29 Vital Signs (Last 24 hours) Temp Pulse Resp BP Pulse Ox 12/21/20 12:00 96.2 F 88 16 120/69 95 12/21/20 07:00 98.0 F 82 16 120/84 97 12/21/20 06:51 96 12/21/20 04:00 97.9 F 80 16 120/66 96 12/20/20 23:32 97.2 F 80 16 114/76 95 Home Medications Medication Instructions Recorded Confirmed Last Taken Type Haloperidol 5 mg [Haldol 5 2.5 mg PO BID PRN PRN #0 12/21/20 12/20/20 12/20/20 09:00 Rx MG] Current Medications Discontinued Medications Generic Name Dose Route Start Last Admin Trade Name Freq PRN Reason Stop Dose Admin Acetaminophen 650 mg 12/20/20 14:36 Feverall 650 Mg NE 01/19/21 14:35 Q4H PRN PRN PAIN AND/OR FEVER Fluoxetine HCl 40 mg 12/21/20 10:00 12/21/20 11:04 Prozac 20 Mg PO 01/20/21 09:59 40 mg DAILY IMTIAZ Administration Haloperidol 2.5 mg 12/20/20 22:00 12/21/20 11:03 Haldol 5 Mg PO 01/19/21 21:59 2.5 mg BID IMTIAZ Administration Sodium Chloride 1,000 mls @ 100 mls/hr 12/20/20 14:36 12/21/20 03:42 Sodium Chloride 0.9% 1000 Ml IV 01/19/21 14:35 100 mls/hr .Q10H IMTIAZ Administration Levetiracetam 1,500 mg 12/20/20 22:00 12/21/20 11:04 Keppra 500 Mg PO 01/19/21 21:59 1,500 mg BID IMTIAZ Administration Oxcarbazepine 1,200 mg 12/20/20 22:00 12/21/20 11:05 Trileptal 300 Mg Tablet PO 01/19/21 21:59 1,200 mg BID IMTIAZ Administration Phenobarbital 32.4 mg 12/20/20 22:00 12/21/20 11:32 Phenobarbital 32.4 Mg PO 01/19/21 21:59 Not Given BID IMTIAZ Phenobarbital 64.8 mg 12/21/20 11:00 12/21/20 11:05 Phenobarbital 32.4 Mg PO 01/20/21 10:59 64.8 mg QAM IMTIAZ Administration Phenobarbital 97.2 mg 12/21/20 22:00 Phenobarbital 32.4 Mg PO 01/20/21 21:59 QPM IMTIAZ Phenytoin Sodium 200 mg 12/20/20 22:00 12/21/20 11:02 Dilantin 100 Mg PO 01/19/21 21:59 200 mg BID IMTIAZ Administration Topiramate 200 mg 12/20/20 22:00 12/21/20 11:04 Topiramate PO 01/19/21 21:59 200 mg BID IMTIAZ Administration Intake & Output (Last 24 hours) 12/19/20 12/20/20 12/21/20 12/22/20 11:59 11:59 11:59 11:59 Intake Total 1200 Output Total 400 Balance 800 Weight 87.8 kg 86 kg Laboratory Results (Last 24 hours) 12/21/20 12/21/20 12/20/20 04:48 04:48 10:38 WBC 6.1 RBC 4.83 Hgb 15.8 Hct 48.3 MCV 100.0 MCH 32.7 H MCHC 32.7 RDW 13.5 Plt Count 172 MPV 9.2 Gran % 70.4 H Eos # (Auto) 0.16 Absolute Lymphs (auto) 1.05 Absolute Monos (auto) 0.59 Lymphocytes % 17.2 L Monocytes % 9.6 Eosinophils % 2.6 Basophils % 0.2 Absolute Granulocytes 4.31 Basophils # 0.01 Sodium 143 Potassium 3.7 Chloride 109 H Carbon Dioxide 20 L Anion Gap 17.3 H BUN 15 Creatinine 0.80 Estimated GFR > 60.0 Glucose 96 Calcium 8.5 Prolactin 11.9 Orders (Last 24 hours) Category Date Time Status cath [Cath for Residual-In & Out] STAT Care 12/21/20 05:44 Active Discharge Routine Discharge 12/21/20 Ordered BMP Stat Lab 12/21/20 04:48 Completed CBC W DIFF Stat Lab 12/21/20 04:48 Completed Fluoxetine HCl 20 mg [Prozac 20 MG] Med 12/21/20 10:00 Discontinued 40 mg PO DAILY Haloperidol 5 mg [Haldol 5 MG] Med 12/20/20 22:00 Discontinued 2.5 mg PO BID Levetiracetam [Keppra 500 mg ] Med 12/20/20 22:00 Discontinued 1,500 mg PO BID Oxcarbazepine 300 mg [Trileptal 300 MG Tablet] Med 12/20/20 22:00 Discontinued 1,200 mg PO BID Phenobarb 32.4 mg [Phenobarbital 32.4 mg] Med 12/20/20 22:00 Discontinued 32.4 mg PO BID Phenobarb 32.4 mg [Phenobarbital 32.4 mg] Med 12/21/20 11:00 Discontinued 64.8 mg PO QAM Phenobarb 32.4 mg [Phenobarbital 32.4 mg] Med 12/21/20 22:00 Discontinued 97.2 mg PO QPM Phenytoin Sod Extended 100 mg* [Dilantin 100 MG] Med 12/20/20 22:00 Discontinued 200 mg PO BID Topiramate Med 12/20/20 22:00 Discontinued 200 mg PO BID Patient Care Notes (Last 24 hours) 12/21/20 12:24 Nursing Note by Antelmo Bloom Report called to Jing the long term nurse about med changes and clinical course here in the hospital. Initialized on 12/21/20 12:24 - END OF NOTE 12/21/20 12:12 (created 12/21/20 12:26) Nursing Note by Sarah Martinez [id number] Discharge instructions given to the guard of the local long term. pt assisted into the w/c and taken to the vehicle to be driven back to the local long term Initialized on 12/21/20 12:26 - END OF NOTE 12/21/20 06:09 Nursing Note by Adali Inman Pt in and out cathed for 400ccs of dark tyrone urine. Initialized on 12/21/20 06:09 - END OF NOTE 12/21/20 05:44 Nursing Note by Adali Inman Pt unable to void. Called Dr. Millan for orders. Order to straight cath. Initialized on 12/21/20 05:44 - END OF NOTE 12/21/20 01:26 Nursing Note by Dawn Alcaraz THIS NURSE IN AT BEDSIDE WITH PT AND THIS NURSE OBSERVED PT HAVING SEIZURE LIKE ACTIVITY [id number] THIS NURSE CALLED UPON [facility] WHO HAD PTS PRIMARY NURSE IN TO CHECK ON PT AT THAT TIME Initialized on 12/21/20 01:26 - END OF NOTE Code(s): R41.82 - ALTERED MENTAL STATUS, UNSPECIFIED Hospital Summary - Hospital Course Hospital Course: Last Vital Signs Temp 96.2 F 12/21/20 12:00 Pulse 88 12/21/20 12:00 Resp 16 12/21/20 12:00 BP 120/69 12/21/20 12:00 Pulse Ox 95 12/21/20 12:00 Allergies lorazepam [From Ativan] Allergy (Mild, Verified 12/20/20 10:29) Nausea Intake & Output 12/21/20 12/22/20 11:59 11:59 Intake Total 1200 Output Total 400 Balance 800 Weight 86 kg Orders 12/21/20 Discharge Routine 12/21/20 05:44 cath [Cath for Residual-In & Out] STAT Lab Tests 12/20/20 12/21/20 12/21/20 10:38 04:48 04:48 WBC 6.1 RBC 4.83 Hgb 15.8 Hct 48.3 MCV 100.0 MCH 32.7 H MCHC 32.7 RDW 13.5 Plt Count 172 MPV 9.2 Gran % 70.4 H Eos # (Auto) 0.16 Absolute Lymphs (auto) 1.05 Absolute Monos (auto) 0.59 Lymphocytes % 17.2 L Monocytes % 9.6 Eosinophils % 2.6 Basophils % 0.2 Absolute Granulocytes 4.31 Basophils # 0.01 Sodium 143 Potassium 3.7 Chloride 109 H Carbon Dioxide 20 L Anion Gap 17.3 H BUN 15 Creatinine 0.80 Estimated GFR > 60.0 Glucose 96 Calcium 8.5 Prolactin 11.9 Medication Report Discontinued Medications Fluoxetine HCl (Prozac 20 Mg) 40 mg PO DAILY [facility] Stop: 01/20/21 09:59 Last Admin: 12/21/20 11:04 Dose: 40 mg Documented by: ELIZABETH Haloperidol (Haldol 5 Mg) 2.5 mg PO BID [facility] Stop: 01/19/21 21:59 Last Admin: 12/21/20 11:03 Dose: 2.5 mg Documented by: ELIZABETH Sodium Chloride (Sodium Chloride 0.9% 1000 Ml) 1,000 mls @ 100 mls/hr IV .Q10H [facility] Stop: 01/19/21 14:35 Last Admin: 12/21/20 03:42 Dose: 100 mls/hr Documented by: RODNEY Infusion/Titration Document 12/21/20 03:42 BSO (Rec: 12/21/20 03:43 BSO [id number]) Dosing & Rate IV Rate 100 Increase/Decrease Started/Running Cumulative Dose Not Applicable IV Intake Cumulative Intake (Rx) 1,000 Container Volume 1,000 Volume Adjustment/Waste 0 Levetiracetam (Keppra 500 Mg ) 1,500 mg PO BID [facility] Stop: 01/19/21 21:59 Last Admin: 12/21/20 11:04 Dose: 1,500 mg Documented by: ELIZABETH Oxcarbazepine (Trileptal 300 Mg Tablet) 1,200 mg PO BID [facility] Stop: 01/19/21 21:59 Last Admin: 12/21/20 11:05 Dose: 1,200 mg Documented by: ELIZABETH Phenobarbital (Phenobarbital 32.4 Mg) 32.4 mg PO BID [facility] Stop: 01/19/21 21:59 Last Admin: 12/21/20 11:32 Dose: Not Given Documented by: ARABELLA Non-Admin Reason: duplicate Phenobarbital (Phenobarbital 32.4 Mg) 64.8 mg PO QAM [facility] Stop: 01/20/21 10:59 Last Admin: 12/21/20 11:05 Dose: 64.8 mg Documented by: ELIZABETH Phenytoin Sodium (Dilantin 100 Mg) 200 mg PO BID [facility] Stop: 01/19/21 21:59 Last Admin: 12/21/20 11:02 Dose: 200 mg Documented by: ELIZABETH Topiramate (Topiramate) 200 mg PO BID [facility] Stop: 01/19/21 21:59 Last Admin: 12/21/20 11:04 Dose: 200 mg Documented by: ELIZABETH Vital Signs Temp 96.2 F 12/21/20 12:00 Pulse 88 12/21/20 12:00 Resp 16 12/21/20 12:00 BP 120/69 12/21/20 12:00 Pulse Ox 95 12/21/20 12:00 Intake & Output 12/20/20 12/21/20 12/21/20 23:59 11:59 23:59 Intake Total 0 1200 Output Total 400 Balance 0 800 Weight 85.8 kg 86 kg Intake: Intake, Oral Amount 0 0 Intake, IV Amount 1200 Output: Output, Straight Cath: 400 - Vitals & Intake/Output Vital Signs: Vital Signs Temperature 96.2 F 12/21/20 12:00 Pulse Rate 88 12/21/20 12:00 Respiratory Rate 16 12/21/20 12:00 Blood Pressure 120/69 12/21/20 12:00 O2 Sat by Pulse Oximetry 95 12/21/20 12:00 Intake & Output: Intake & Output 12/19/20 12/20/20 12/21/20 12/22/20 11:59 11:59 11:59 11:59 Intake Total 1200 Output Total 400 Balance 800 Weight 87.8 kg 86 kg - Lab Result Diagrams: 12/21/20 04:48 12/21/20 04:48 Lab Results-Last 24 Hrs: Lab Results-Last 24 Hours 12/20/20 12/21/20 12/21/20 Range/Units 10:38 04:48 04:48 WBC 6.1 (4.0-10.5) K/mm3 RBC 4.83 (4.1-5.6) M/mm3 Hgb 15.8 (12.5-18.0) gm/dl Hct 48.3 (42-50) % MCV 100.0 (78-100) fl MCH 32.7 H (26-32) pg MCHC 32.7 (32-36) g/dl RDW 13.5 (11.5-14.0) % Plt Count 172 (150-450) K/mm3 MPV 9.2 (7.5-11.0) fl Gran % 70.4 H (36.0-66.0) % Eos # (Auto) 0.16 (0-0.5) Absolute Lymphs (auto) 1.05 (1.0-4.6) Absolute Monos (auto) 0.59 (0.0-1.3) Lymphocytes % 17.2 L (24.0-44.0) % Monocytes % 9.6 (0.0-12.0) % Eosinophils % 2.6 (0.00-5.0) % Basophils % 0.2 (0.0-0.4) % Absolute Granulocytes 4.31 (1.4-6.9) Basophils # 0.01 (0-0.4) Sodium 143 (137-145) mmol/L Potassium 3.7 (3.5-5.1) mmol/L Chloride 109 H (98-107) mmol/L Carbon Dioxide 20 L (22-30) mmol/L Anion Gap 17.3 H (5-15) MEQ/L BUN 15 (9-20) mg/dL Creatinine 0.80 (0.66-1.25) mg/dL Estimated GFR > 60.0 ML/MIN Glucose 96 (74-106) mg/dL Calcium 8.5 (8.4-10.2) mg/dL Prolactin 11.9 (4.0-15.2) ng/mL - Radiology Exams Ordered Rad Exams-Entire Visit: Radiology Procedures Category Date Time Status HEAD WITHOUT CONTRAST [CT] Stat Exams 12/20/20 10:12 Completed - Discharge Discharge Date: 12/21/20 Disposition: XFER OTHER Condition: Stable Prescriptions: Continue Phenytoin Sod Extended 100 mg* [Dilantin 100 MG] 200 mg PO BID Topiramate [Topamax] 200 mg PO BID Phenobarb 32.4 mg [Phenobarbital 32.4 mg] 32.4 mg PO BID Oxcarbazepine [Trileptal] 1,200 mg PO BID Fluoxetine HCl 40 mg PO DAILY Levetiracetam [Keppra] 1,500 mg PO BID Changed Haloperidol 5 mg [Haldol 5 MG] 2.5 mg PO BID PRN PRN #0 PRN Reason: Agitation Forms: Discharge Instructions
== END 2020-12-21 12:15 ==
LOC: ED 09:52 → EEVIPCON 14:32 → MED SURG 14:32
PROVIDERS: ADMIT General Practice; ATTEND General Practice
DX: R41.82 Altered mental status, unspecified (principal); R56.9 Unspecified convulsions; Z79.899 Other long term (current) drug therapy; Z20.828 Contact with and (suspected) exposure to other viral communicable diseases; F31.9 Bipolar disorder, unspecified
CPT/HCPCS: 36000; 36415; 70450; 80048; 80053; 80185; 80307; 81001; 82140; 84146; 85025; 93005; 93041; 93268; 94760; 94762; 99285; G0378; G0480; P9612; U0003; A9270-GY

== ENCOUNTER 2020-12-22 12:58 | Emergency (ER) | payer OTHER ==
[2020-12-22 13:20] VITALS: O2SAT 97
--- NOTE | 2020-12-22 13:27 | ERPHSYRPT ---
- History of Present Illness Time Seen by Provider: 12/22/20 13:26 Source: patient, EMS, police Exam Limitations: clinical condition Patient Subjective Stated Complaint: Seizure Triage Nursing Assessment: Patient brought into ED via EMS and transferred to bed per 4. EMS arrived at intermediate to take patient to [facility] due to decreasing condition, but upon arrival patient was actively seizing. Patient was given 5mg instranasally per EMS prior to arrival. Patient alert to name only and saturated in urine. Patient responds to verbal/painful stimuli. Physician History: This is a 35-year-old white male who has a history of seizure disorder and is taking phenobarb, Dilantin, Topamax, Haldol, Prozac and Keppra as well as using an internal left chest nerve stimulator to control his seizures and presents with another seizure episode. Patient was seen here in this emergency department on 12/20/2020 for the same issue. Patient was admitted in the hospital on 12/20/2020 and was discharged back to the intermediate on 12/21/2020. There was some change in his medication. Apparently, the plan was for him to go to [facility] because it is staff 24 hours versus 6 hours at the current intermediate. Dr. Linton is the physician that has seen this patient on a couple occasions recently including evaluating him yesterday and discharging him back to the intermediate. I did discuss this with him today. He stated, and I agree, there is nothing different to offer this patient at our facility. He had a breakthrough seizure. That is the only reason he was diverted to our facility. He is here for medical screening/clearance so he can proceed on to [facility]. Patient received intranasal Versed and he has not seized during his transport here or upon arrival to the emergency department. Upon arrival to the emergency department he is hemodynamically stable. Timing/Duration: today Severity: mild (To moderate) Character of Deficits: other (Lethargic but arousable) Deficits: no difficulties Baseline/Normal Cognition: poor alertness (But arousable) Current Cognition: poor alertness (But arousable) Baseline Gait: walks w/o assistance Associated Symptoms: other (Lethargic but arousable patient moving all his extremities) Allergies/Adverse Reactions: lorazepam [From Ativan] Allergy (Mild, Verified 12/22/20 13:26) Nausea Home Medications: Oxcarbazepine [Trileptal] 1,200 mg PO BID 11/21/16 [History] Phenobarb 32.4 mg [Phenobarbital 32.4 mg] 32.4 mg PO BID 11/21/16 [History] Phenytoin Sod Extended 100 mg* [Dilantin 100 MG] 200 mg PO BID 11/21/16 [History] Topiramate [Topamax] 200 mg PO BID 11/21/16 [History] Fluoxetine HCl 40 mg PO DAILY 09/26/20 [History] Levetiracetam [Keppra] 1,500 mg PO BID 09/26/20 [History] Hx Tetanus, Diphtheria Vaccination/Date Given: Yes Hx Influenza Vaccination/Date Given: No Hx Pneumococcal Vaccination/Date Given: No Immunizations Up to Date: Yes Travel Risk - International Travel Have you traveled outside of the country in past 3 weeks: No - Coronavirus Screening Are you exhibiting any of the following symptoms?: No - Vaccine Status Have you recieved a Covid-19 vaccination: Yes Director Funeral: Unknown - Vaccination Dates Dates if Unknown: at intermediate - Review of Systems Constitutional: Lethargy (But arousable) Eyes: No Symptoms Ears, Nose, & Throat: No Symptoms Respiratory: No Symptoms Cardiac: No Symptoms Abdominal/Gastrointestinal: No Symptoms Genitourinary Symptoms: No Symptoms Musculoskeletal: No Symptoms Skin: No Symptoms Neurological: Lethargy (But arousable) Psychological: No Symptoms Endocrine: No Symptoms Hematologic/Lymphatic: No Symptoms Immunological/Allergic: No Symptoms All Other Systems: Reviewed and Negative - Past Medical History Pertinent Past Medical History: Yes Neurological History: Seizures ENT History: No Pertinent History Cardiac History: No Pertinent History Respiratory History: No Pertinent History Endocrine Medical History: No Pertinent History Musculoskeletal History: No Pertinent History GI Medical History: No Pertinent History History: No Pertinent History Psycho-Social History: Anxiety, Bipolar, Depression Male Reproductive Disorders: No Pertinent History - Past Surgical History Past Surgical History: Yes Neuro Surgical History: No Pertinent History Cardiac: No Pertinent History Respiratory: No Pertinent History Gastrointestinal: No Pertinent History Genitourinary: No Pertinent History Musculoskeletal: No Pertinent History Male Surgical History: No Pertinent History Other Surgical History: VNS Stimulator for seizures. (Internal Left Chest) - Social History Smoking Status: Former smoker Exposure to second hand smoke: No Alcohol Use: None Drug Use: none Patient Lives Alone: No (intermediate staff) Significant Family History: no pertinent family hx - Nursing Vital Signs Nursing Vital Signs: Initial Vital Signs Temperature 98.1 F 12/22/20 13:04 Pulse Rate 91 H 12/22/20 13:04 Respiratory Rate 18 12/22/20 13:04 Blood Pressure 135/104 12/22/20 13:04 O2 Sat by Pulse Oximetry 97 12/22/20 13:04 Pain Scale Pain Intensity 0 - Jony Coma Scale Best Eye Response (Jony): (3) open to voice Best Verbal Response ([place]): (4) confused conversation Best Motor Response (Jony): (6) obeys commands [place] Total: 13 - Physical Exam General Appearance: lethargy (But arousable) Eye Exam: bilateral eye: normal inspection, PERRL, EOMI Ears, Nose, Throat Exam: normal ENT inspection, moist mucous membranes Neck Exam: normal inspection, non-tender, supple, full range of motion Respiratory: normal breath sounds, lungs clear, airway intact, No chest tenderness, No respiratory distress Cardiovascular: regular rate/rhythm, normal heart sounds, normal peripheral pulses Gastrointestinal: soft, normal bowel sounds, No tenderness Rectal Exam: not done Back Exam: normal inspection, normal range of motion, No CVA tenderness, No vertebral tenderness Extremity Exam: normal inspection, normal range of motion, pelvis stable Mental Status: lethargy (Rousable) 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 Exam: PERRL, tongue midline Skin Exam: normal color, warm, dry SpO2 Interpretation: normal SpO2: 97 O2 Delivery: Room Air - Course Nursing assessment & vital signs reviewed: Yes Ordered Tests: Active Orders 24 hr Category Date Time Status Catheter-[place] Main STAT Care 12/22/20 13:24 Active EKG-ER Only STAT Care 12/22/20 13:24 Active Medication Summary Generic Name Dose Route Start Last Admin Trade Name Freq PRN Reason Stop Dose Admin Fosphenytoin Sodium 1,000 mg/ 120 mls @ 240 mls/hr 12/22/20 13:45 12/22/20 13:48 Sodium Chloride IV 12/22/20 14:14 240 mls/hr STAT ONE Administration Discontinued Medications Generic Name Dose Route Start Last Admin Trade Name Freq PRN Reason Stop Dose Admin Phenytoin Sodium 1,000 mg/ 120 mls @ 240 mls/hr 12/22/20 13:31 Sodium Chloride IV 12/22/20 14:00 STAT ONE - Progress Progress: unchanged Progress Note: 12/22/20 13:59 Medical decision making: This patient has not been actively seizing here in this emergency department. He is lethargic but arousable. However, he is on multiple medications that can make him lethargic. He did take all his medications per intermediate staff. The only reason why he came to this facility after being discharged yesterday was he had another breakthrough seizure when they were getting ready to transport him to [facility] medical unit. We are assessing him for medical clearance for continued transport. He has no chest pain. He has no shortness of breath. He has no abdominal pain. The I did discuss this with Dr. Linton who admitted the patient the last 2 times our facility. There is no benefit for him to come into our facility. He was just discharged to home yesterday. We do not have neurology on staff. Patient's EKG shows no acute ischemic changes. We did opt to place a Main catheter in this patient. I did not repeat CAT scan of his head since he had a normal CAT scan of his head without contrast less than 48 hours ago. His blood work was also without any significant abnormalities. His urinalysis and urine drug screen did not show any acute infection or illicit drug use respectively. He had phenobarbital in the system but he is taking that to help prevent seizures. - Departure Departure Disposition: Retirement/[facility] Clinical Impression: Seizure disorder, Post-ictal confusion, Medical clearance for incarceration Condition: Stable Critical Care Time: No Referrals: CHU LINTON MD [Primary Care Provider] -
[2020-12-22] MEDS: CEREBYX IV ONE (13:48)
[2020-12-22] MEDS: SODIUM CHLORIDE 0.9% IV ONE ×2 (13:48→13:54)
[2020-12-22] MEDS: DILANTIN IV ONE (13:54)
[2020-12-22 14:20] VITALS: BP 141/94; PULSE 82
== END 2020-12-22 15:44 | disposition home or self-care (01) ==
LOC: ED 12:58
DX: G40.909 Epilepsy, unspecified, not intractable, without status epilepticus (principal); Z02.89 Encounter for other administrative examinations; F31.9 Bipolar disorder, unspecified
CPT/HCPCS: 51702; 93005; 99284; Q2009

== ENCOUNTER 2022-04-06 15:49 | Emergency (ER) | payer MEDICARE, OTHER ==
[2022-04-06] MEDS ORDERED: Sodium Chloride 0.9% 1000 ML 1,000 ML IV STA (16:30)
[2022-04-06] MEDS ORDERED: Keppra 500 MG/5 ML*** 1,000 MG in D5w 100ML Mini Bag 100 ML 100 ML IV ONE (16:30)
[2022-04-06] MEDS ORDERED: Dilantin 100 MG PO ONE (16:31)
[2022-04-06] MEDS ORDERED: Sodium Chloride 0.9% 1000 ML 1,000 ML ONE (16:40)
[2022-04-06 16:51] LABS: Absolute Neutrophil Ct (ANC) 3.44 x10^3/uL (1.4-6.9); Basophil (Absolute #) 0.02 x10^3/uL (0-0.4); Eosinophil % 0.9 % (0.00-5.0); Eosinophil (Absolute #) 0.04 x10^3/uL (0-0.5); Hematocrit 41.2 % (42-50); Hemoglobin 13.5 g/dL (12.5-18.0); Lymphocyte (Absolute #) 0.46 x10^3/uL (1.0-4.6); Lymphocytes % 9.8 % (24.0-44.0); Mean Cell Volume 99.5 fL (78-100); Mean Corpuscular Hemoglobin 32.6 pg (26-32); Mean Corpuscular Hgb Concent. 32.8 g/dL (32-36); Mean Platelet Volume 8.6 fL (7.5-11.0); Monocytes % 14.9 % (0.0-12.0); Neutrophil % 73.4 % (36.0-66.0); Platelet Count 183 x10^3/uL (150-450); Red Blood Count 4.14 x10^6/uL (4.1-5.6); Red Cell Distribution Width 13.8 % (11.5-14.0); White Blood Count 4.7 x10^3/uL (4.0-10.5)
[2022-04-06 16:57] LABS: ALBUMIN 4.1 g/dL (3.5-5.0); ALKALINE PHOSPHATASE 81 U/L (38-126); ANION GAP 11.7 MEQ/L (5-15); BLOOD UREA NITROGEN 15 mg/dL (9-20); CHLORIDE 100 mmol/L (98-107); Calcium 8.5 mg/dL (8.4-10.2); Carbon Dioxide 28 mmol/L (22-30); Creatinine 1 0.65 mg/dL (0.66-1.25); EST GLOMERULAR FILTRATION RATE > 60.0 ML/MIN; Glucose 113 mg/dL (74-106); Potassium 3.8 mmol/L (3.5-5.1); SGOT/AST 47 U/L (17-59); SGPT/ALT 22 U/L (0-50); SODIUM 136 mmol/L (137-145); Total Protein 7.3 g/dL (6.3-8.2)
[2022-04-06 17:06] VITALS: O2SAT 96
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
[2022-04-06 17:25] LABS: Appearance CLEAR (CLEAR); Bilirubin MODERATE (NEGATIVE); Glucose NEGATIVE (NEGATIVE)
[2022-04-06 17:26] LABS: Dipstick done @ ? MAIN LAB; Ketones TRACE (NEGATIVE); Nitrite NEGATIVE (NEGATIVE); Protein,Urine Dip >=300 (Negative); RBC NEGATIVE Ery/ul (0-5); Specific Gravity >=1.030 (1.005-1.025); Urobilinogen 4 mg/dL (0-1)
[2022-04-06 17:27] LABS: Bacteria FEW /HPF (NEGATIVE); Mucus MANY /HPF (NEGATIVE); RBC 0-2 /HPF (0-2)
[2022-04-06 17:29] LABS: Urine Cultured Indicated? NO; WBC 0-2 /HPF (0-5)
[2022-04-06 17:33] LABS: Amphetamine,Urine NEGATIVE (NEGATIVE); Barbiturate,Urine POSITIVE (NEGATIVE); Benzodiazepine,Urine NEGATIVE (NEGATIVE); Cocaine,Urine NEGATIVE (NEGATIVE); Methadone,Urine NEGATIVE (NEGATIVE); Opiate,Urine NEGATIVE (NEGATIVE); PCP,Urine NEGATIVE (NEGATIVE); THC,Urine NEGATIVE (NEGATIVE)
[2022-04-06 18:08] VITALS: BP 133/77; PULSE 88
[2022-04-06 23:46] LABS: Slide Review 1 YES
== END 2022-04-06 18:17 | disposition home or self-care (01) ==
LOC: ED 15:49
DX: G40.909 Epilepsy, unspecified, not intractable, without status epilepticus (principal); Z79.899 Other long term (current) drug therapy
CPT/HCPCS: 36000; 36415; 80053; 80307; 81015; 82947; 83605; 85025; 93005; 94760; 96360; 96374; 99284; J1953; A9270-GY

== ENCOUNTER 2022-04-10 03:36 | Emergency (ER) | payer MEDICARE ==
[2022-04-10 03:51] VITALS: O2SAT 98
[2022-04-10 04:29] LABS: Absolute Neutrophil Ct (ANC) 5.44 x10^3/uL (1.4-6.9); Basophil (Absolute #) 0.03 x10^3/uL (0-0.4); Eosinophil % 2.9 % (0.00-5.0); Eosinophil (Absolute #) 0.26 x10^3/uL (0-0.5); Hematocrit 40.5 % (42-50); Hemoglobin 12.9 g/dL (12.5-18.0); Lymphocyte (Absolute #) 1.91 x10^3/uL (1.0-4.6); Lymphocytes % 21.2 % (24.0-44.0); Mean Cell Volume 101.5 fL (78-100); Mean Corpuscular Hemoglobin 32.3 pg (26-32); Mean Corpuscular Hgb Concent. 31.9 g/dL (32-36); Mean Platelet Volume 8.6 fL (7.5-11.0); Monocyte (Absolute #) 1.35 x10^3/uL (0.0-1.3); Neutrophil % 60.3 % (36.0-66.0); Platelet Count 326 x10^3/uL (150-450); Red Blood Count 3.99 x10^6/uL (4.1-5.6); Red Cell Distribution Width 13.7 % (11.5-14.0)
[2022-04-10 04:39] LABS: ALBUMIN 4.2 g/dL (3.5-5.0); ALKALINE PHOSPHATASE 88 U/L (38-126); ANION GAP 13.5 MEQ/L (5-15); BLOOD UREA NITROGEN 12 mg/dL (9-20); CHLORIDE 103 mmol/L (98-107); Calcium 8.5 mg/dL (8.4-10.2); Carbon Dioxide 25 mmol/L (22-30); Creatinine 1 0.57 mg/dL (0.66-1.25); EST GLOMERULAR FILTRATION RATE > 60.0 ML/MIN; Glucose 96 mg/dL (74-106); Potassium 3.6 mmol/L (3.5-5.1); SGOT/AST 32 U/L (17-59); SGPT/ALT 27 U/L (0-50); SODIUM 138 mmol/L (137-145); Total Protein 7.3 g/dL (6.3-8.2)
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
[2022-04-10 05:04] VITALS: BP 146/92; PULSE 73
[2022-04-10] MEDS ORDERED: Keppra 500 MG/5 ML*** 500 MG in D5w 100ML Mini Bag 100 ML 100 ML IV ONE (05:12)
[2022-04-10] MEDS ORDERED: Keppra 500 MG/5 ML ONE (05:16)
[2022-04-10] MEDS ORDERED: D5w 100ML Mini Bag 100 ML 100 ML IV ONE (05:16)
--- NOTE | 2022-04-10 08:53 | XRAY ---
Indication: Seizure with head injury. Multiple contiguous axial images obtained through the head without contrast. Comparison: December 20, 2020 Normal appearing brain parenchyma, ventricles, and bony calvarium for patient's age. Visualized paranasal sinuses and mastoid air cells are clear. Impression: Continued normal CT head without contrast exam. Comment: Preliminary interpretation was made by [facility]. No critical discrepancy.
== END 2022-04-10 05:56 | disposition home or self-care (01) ==
LOC: ED 03:36
DX: R56.9 Unspecified convulsions (principal); Z79.899 Other long term (current) drug therapy
CPT/HCPCS: 36415; 70450; 80053; 85025; 96372; 99283; J1953

== ENCOUNTER 2022-06-26 06:23 | Emergency (ER) | payer MEDICARE, OTHER ==
[2022-06-26 07:07] LABS: BASOPHIL % 0.5 % (0.0-0.4); Basophil (Absolute #) 0.04 x10^3/uL (0-0.4); Eosinophil (Absolute #) 0.17 x10^3/uL (0-0.5); Hematocrit 42.3 % (42-50); Hemoglobin 13.1 g/dL (12.5-18.0); IMMATURE GRAN # 0.03 x10^3u/L (0.00-0.03); IMMATURE GRAN % 0.4 % (0.00-0.4); Lymphocyte (Absolute #) 2.03 x10^3/uL (1.0-4.6); Lymphocytes % 23.7 % (24.0-44.0); Mean Cell Volume 98.4 fL (78-100); Mean Corpuscular Hemoglobin 30.5 pg (26-32); Mean Platelet Volume 9.1 fL (7.5-11.0); Monocytes % 8.2 % (0.0-12.0); Neutrophil % 65.2 % (36.0-66.0); Platelet Count 294 x10^3/uL (150-450); Red Cell Distribution Width 14.9 % (11.5-14.0); White Blood Count 8.6 x10^3/uL (4.0-10.5)
[2022-06-26 07:21] LABS: ALKALINE PHOSPHATASE 98 U/L (38-126); ANION GAP 22.8 MEQ/L (5-15); BLOOD UREA NITROGEN 9 mg/dL (9-20); CHLORIDE 102 mmol/L (98-107); Calcium 9.2 mg/dL (8.4-10.2); Carbon Dioxide 21 mmol/L (22-30); EST GLOMERULAR FILTRATION RATE > 60.0 ML/MIN; Glucose 129 mg/dL (74-106); Potassium 3.5 mmol/L (3.5-5.1); SGOT/AST 36 U/L (17-59); SODIUM 142 mmol/L (137-145); Total Protein 8.5 g/dL (6.3-8.2)
[2022-06-26 07:27] LABS: SGPT/ALT 38 U/L (0-50)
[2022-06-26 08:11] LABS: Appearance Clear (Clear); Bilirubin Negative (Negative); Blood Small (Negative); Glucose, Urine Negative (Negative); Ketones Negative (Negative); Leukocyte Esterase Negative (Negative); Nitrite Negative (Negative); Protein,Urine Dip 300 (Negative); Specific Gravity 1.015 (1.005-1.030); Urobilinogen 0.2 mg/dL (0.2)
[2022-06-26 08:28] LABS: Bacteria None Seen /HPF (None Seen); Epithelial Cells None Seen /HPF (None Seen); Hyaline Casts NONE SEEN /LPF (0-2); WBC 0-2 /HPF (0-5)
[2022-06-26 08:29] LABS: ADD URINE CULTURE? NO (NO)
[2022-06-26 08:30] LABS: Amphetamine,Urine NEGATIVE (NEGATIVE); Barbiturate,Urine POSITIVE (NEGATIVE); Benzodiazepine,Urine NEGATIVE (NEGATIVE); Cocaine,Urine NEGATIVE (NEGATIVE); Methadone,Urine NEGATIVE (NEGATIVE); Opiate,Urine NEGATIVE (NEGATIVE); PCP,Urine NEGATIVE (NEGATIVE); THC,Urine NEGATIVE (NEGATIVE)
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
--- NOTE | 2022-06-26 08:59 | XRAY ---
Indication: Seizures. Multiple contiguous axial images obtained through the head without contrast. Comparison: April 10, 2022 Normal appearing brain parenchyma, ventricles, and bony calvarium for patient's age. Visualized paranasal sinuses and mastoid air cells are clear. Impression: Continued normal CT head without contrast exam.
[2022-06-26 10:02] VITALS: BP 137/100; PULSE 88
[2022-06-26 10:07] VITALS: O2SAT 94
== END 2022-06-26 10:34 | disposition home or self-care (01) ==
LOC: ED 06:23
DX: G40.919 Epilepsy, unspecified, intractable, without status epilepticus (principal); R80.9 Proteinuria, unspecified; I10 Essential (primary) hypertension; Z79.899 Other long term (current) drug therapy; Z28.310 Unvaccinated for COVID-19
CPT/HCPCS: 36000; 36415; 70450; 80053; 80184; 80307; 81001; 82947; 85025; 93041; 94760; 99284; G0480

== ENCOUNTER 2022-09-27 23:03 | Emergency (ER) | payer MEDICARE ==
[2022-09-27 23:20] VITALS: BP 120/76; PULSE 114; O2SAT 98
[2022-09-27] MEDS ORDERED: TORAdol 30 mg Injection IM ONE (23:20)
[2022-09-27] MEDS ORDERED: TORAdol 30 mg Injection ONE (23:24)
--- NOTE | 2022-09-27 23:27 | ERPHSYRPT ---
- History of Present Illness Time Seen by Provider: 09/27/22 23:21 Source: patient, family Exam Limitations: no limitations Patient Subjective Stated Complaint: pt states "he saw Dr Lynn in office today for abscess on back and is scheduled to see Dr Higgins on saturday 09/30". Triage Nursing Assessment: pt ambulated into room 9 independently with slow steady gait after standing on scale for weight acquisition. pt is alert and oriented times three, able to move all extremities, resp even and unlabored, and able to speak in complete sentences. large red hot area to left upper lateral back with approx half dollar size abscess that is white around the edges and dark brown center approx dime size. Physician History: pt states "he saw Dr Lynn in office today for abscess on back and is scheduled to see Dr Higgins on saturday 09/30". large red hot area to left upper lateral back with approx half dollar size abscess that is white around the edges and dark brown center approx dime size. Timing/Duration: week(s) (two weeks) Severity: moderate Modifying Factors: Improves With: cold therapy Associated Symptoms: denies symptoms Allergies/Adverse Reactions: lorazepam [From Ativan] Allergy (Mild, Verified 06/26/22 06:26) Nausea Penicillins Allergy (Mild, Verified 06/26/22 06:26) Home Medications: Phenobarb 32.4 mg [Phenobarbital 32.4 mg] 32.4 mg PO BID 11/21/16 [History] Fluoxetine HCl 40 mg PO DAILY 09/26/20 [History] Levetiracetam [Keppra] 1,500 mg PO BID 09/26/20 [History] Lacosamide 100 mg PO BID 04/10/22 [History] Benazepril HCl 1 tablet PO DAILY 09/27/22 [History] Benztropine Mesylate 0.5 mg PO BID 09/27/22 [History] Cenobamate [Xcopri] 100 mg PO DAILY 09/27/22 [History] Haloperidol [Haldol] 5 mg PO DAILY 09/27/22 [History] Sulfamethoxazole/Trimethoprim [Bactrim Ds Tablet] 1 tablet PO BID 09/27/22 [History] Hx Tetanus, Diphtheria Vaccination/Date Given: No Hx Influenza Vaccination/Date Given: Yes Hx Pneumococcal Vaccination/Date Given: No Immunizations Up to Date: Yes Travel Risk - International Travel Have you traveled outside of the country in past 3 weeks: No - Coronavirus Screening Are you exhibiting any of the following symptoms?: No Close contact with a COVID-19 positive Pt in past 14-21 Days: No - Vaccine Status Have you recieved a Covid-19 vaccination: No 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 - Vaccination Dates Dates if Unknown: at group home - Review of Systems Constitutional: No Fever, No Chills Eyes: No Symptoms Ears, Nose, & Throat: No Symptoms Respiratory: No Cough, No Dyspnea Cardiac: No Chest Pain, No Edema, No Syncope Abdominal/Gastrointestinal: No Abdominal Pain, No Nausea, No Vomiting, No Diarrhea Genitourinary Symptoms: No Dysuria Musculoskeletal: No Back Pain, No Neck Pain Skin: Cellulitis (on left mid back), Induration, No Rash Neurological: No Dizziness, No Focal Weakness, No Sensory Changes Psychological: No Symptoms Endocrine: No Symptoms All Other Systems: Reviewed and Negative - Past Medical History Pertinent Past Medical History: Yes Neurological History: Epilepsy, Seizures ENT History: No Pertinent History Cardiac History: Hypertension Respiratory History: No Pertinent History Endocrine Medical History: No Pertinent History Musculoskeletal History: No Pertinent History GI Medical History: No Pertinent History History: No Pertinent History Psycho-Social History: Anxiety, Bipolar, Depression Male Reproductive Disorders: No Pertinent History - Past Surgical History Past Surgical History: Yes Neuro Surgical History: No Pertinent History Cardiac: No Pertinent History Respiratory: No Pertinent History Gastrointestinal: No Pertinent History Genitourinary: No Pertinent History Musculoskeletal: No Pertinent History Male Surgical History: No Pertinent History Other Surgical History: VNS Stimulator for seizures. (Internal Left Chest) - Social History Smoking Status: Former smoker Exposure to second hand smoke: No Alcohol Use: None Drug Use: none Patient Lives Alone: No Significant Family History: no pertinent family hx - Nursing Vital Signs Nursing Vital Signs: Initial Vital Signs Temperature 98.8 F 09/27/22 23:10 Pulse Rate 114 H 09/27/22 23:10 Respiratory Rate 18 09/27/22 23:10 Blood Pressure 120/76 09/27/22 23:10 O2 Sat by Pulse Oximetry 98 09/27/22 23:10 Pain Scale Pain Intensity 2 - Physical Exam General Appearance: no apparent distress, alert Eye Exam: PERRL/EOMI, eyes nml inspection Ears, Nose, Throat Exam: normal ENT inspection, TMs normal, pharynx normal, moist mucous membranes Neck Exam: normal inspection, non-tender, supple, full range of motion Respiratory Exam: normal breath sounds, lungs clear, No respiratory distress Cardiovascular Exam: regular rate/rhythm, normal heart sounds, normal peripheral pulses Gastrointestinal/Abdomen Exam: soft, normal bowel sounds, No tenderness, No mass Back Exam: normal inspection, normal range of motion, No CVA tenderness, No vertebral tenderness Extremity Exam: normal inspection, normal range of motion, pelvis stable Neurologic Exam: alert, oriented x 3, cooperative, normal mood/affect, nml cerebellar function, nml station & gait, sensation nml, No motor deficits Skin Exam: normal color, warm, dry, other (abscess on left mid back area), No rash Lymphatic Exam: No adenopathy SpO2 Interpretation: normal SpO2: 98 O2 Delivery: Room Air - Course Nursing assessment & vital signs reviewed: Yes - Progress Progress: unchanged Progress Note: 09/27/22 23:23 Patient is already scheduled for I&D on friday by surgeon. Patient is already on antibiotics. Patient needs some pain relief. Will give IM Toradol. Counseled pt/family regarding: diagnosis, need for follow-up Medical Desision Making - Risk of complications Low Risk: Low risk of morbidity from additional dx testing or treatment - Departure Departure Disposition: Home Clinical Impression: Cellulitis of back [any part except buttock] Condition: Stable Critical Care Time: No Referrals: HOLLAND LYNN [Primary Care Provider] - Follow up/PCP as directed Instructions: Wound Infection Additional Instructions: Keep your appointment for incisions and drainage on Friday. Discharge/Care Plan MCKENNA GROSSMAN was seen on 09/27/22 in the Emergency Room. The patient was counseled regarding Diagnosis,Lab results, Imaging studies, need for follow up and when to return to the Emergency Room. Prescriptions given: Discharge Note I have spoken with the patient and/or caregivers. I have explained the patient's condition, diagnosis and treatment plan based on the information available to me at this time. I have answered the patient's and/or caregiver's questions and addressed any concerns. The patient and/or caregivers have as good understanding of the patient's diagnosis, condition and treatment plan as can be expected at this point. The vital signs have been stable. The patient's condition is stable and appropriate for discharge from the emergency department. The patient will pursue further outpatient evaluation with the primary care physician or other designated or consulting physician as outlined in the discharge instructions. The patient and/or caregivers are agreeable to this plan of care and follow-up instructions have been explained in detail. The patient and/or caregivers have received these instruction. The patient/and or caregivers are aware that any significant change in condition or worsening of symptoms should prompt an immediate return to this or the closest emergency department or call 911. CHAUNCEYMCKENNA ALVAREZ was seen on 09/27/22 n the Emergency Room. At that time you were treated for an emergent condition, during your visit Laboratory, Radiology and/or other procedures may have been ordered. It is very important that you follow-up with your Primary Care Physician HOLLAND LYNN within the next 24-48 hours to review your Emergency Room visit and the final results of testing that was ordered. Some test results such as Urine Cultures, Blood Cultures, and other cultures if ordered will not be finalized for 24-48 hours. If you do not have a Primary Care Provider please call the medical records department at [phone] ext [phone] to obtain a copy of your results or you may sign into our patient portal to obtain these results by visiting us @ [email or web address] and completing the following steps: 1. Click on the Patient Portal link 2. Click the Patient Self Enrollment Link to complete the enrollment form and entering your 3. Once the enrollment form is completed you will receive an email with a temporary ID and password at the email address you provided. 4. Next choose a user name and password. Your user name must be at least 4 characters long and your password must be at least 4 characters long. 5. Choose a security question from the list and provide your answer to the question. If you already have signed into the Health Portal you may access your Health Care Information 09/12 by the following steps: 1. Login to our website @ [email or web address] 2. Enter your original user name and password. FAQS The [facility] is an online tool that contains your Lab Results, Radiology Reports, Visit History, Discharge Instructions and Health Summary Lab and Radiology Results will not be available for 72 hours on the portal. The Portal is a secure site, passwords are encryted and URLs are re-written so they cannot be copied and pasted. You and authorized family members are the only ones who can access your Portal. Also there is a timeout feature that protects your information if you leave the Portal page open. If you have technical difficulty please use the Contact Us link on the page this will allow you to submit any questions you have regarding the Portal or you may contact the Medical Record Department at [phone] ext [phone]. Prescriptions: Ketorolac Trometh 10 mg Tab [TORAdol 10 MG TABLET] 10 mg PO TID #15 tablet
== END 2022-09-27 23:42 | disposition home or self-care (01) ==
LOC: ED 23:03
DX: L03.312 Cellulitis of back [any part except buttock and flank] (principal); I10 Essential (primary) hypertension; Z79.899 Other long term (current) drug therapy; Z20.828 Contact with and (suspected) exposure to other viral communicable diseases
CPT/HCPCS: 96372; 99282; J1885

== ENCOUNTER 2022-09-30 12:29 | Day surgery (SDC) | payer MEDICARE ==
[2022-09-30] MEDS ORDERED: Lactated Ringers 1,000 ML IV ONE (12:41)
[2022-09-30] MEDS ORDERED: Lactated Ringers 1,000 ML IV SCH (13:00)
[2022-09-30] MEDS ORDERED: CEFAZOLIN 2 GM-D5W BAG** 2 GM/50 ML ML IV SCH (13:00)
[2022-09-30] MEDS ORDERED: SUBLIMAZE 100 MCG/2 ML ONE (14:30)
[2022-09-30] MEDS ORDERED: DIPRIVAN 200 MG/20 ML IV ONE (14:30)
[2022-09-30] MEDS ORDERED: Xylocaine-Mpf 2% 5 Ml Vial ONE (14:30)
[2022-09-30] MEDS ORDERED: Decadron 4 MG INJ ONE (14:30)
[2022-09-30] MEDS ORDERED: Zofran 4 MG/2 ML VIAL ONE (14:30)
[2022-09-30] MEDS ORDERED: Versed 2 MG/2 ML Injection ONE (14:30)
[2022-09-30] MEDS ORDERED: TORAdol 30 mg Injection ONE (14:31)
[2022-09-30] MEDS ORDERED: Sensorcaine 0.25% 10 ML ONE (14:31)
[2022-09-30] MEDS ORDERED: PHENYLEPHRINE HCL ONE (14:48)
[2022-09-30] MEDS ORDERED: Ephedrine Sulfate 50 MG/ML ONE (14:59)
[2022-09-30] MEDS ORDERED: Ketamine HCl 50 MG/ML ONE (15:03)
[2022-09-30] MEDS ORDERED: DILAUDID 2 MG INJECTION ONE (15:21)
[2022-09-30 16:27] VITALS: O2SAT 94
[2022-09-30 17:03] VITALS: BP 94/64; PULSE 107
--- NOTE | 2022-10-01 08:11 | OP ---
SURGERY DATE/TIME: 09/30/2022 1435 PREOPERATIVE DIAGNOSIS: Ruptured back cyst or abscess site. POSTOPERATIVE DIAGNOSIS: Ruptured back cyst or abscess site. PROCEDURE: Excision of ruptured back cyst or abscess site approximately 5 x 2.5 x 3 cm including portion of devitalized infected underlying fascia. SURGEON: Tiburcio Macias M.D. PATIENT SAFETY COORDINATOR: Suni Wesley, Medical Student III. ANESTHESIA: General. ESTIMATED BLOOD LOSS: Minimal. FINDINGS: As noted above. INDICATIONS: Risks and benefits explained, consent obtained. DESCRIPTION OF PROCEDURE AND FINDINGS: The patient is taken to the operating room. General anesthesia induced. Appropriate padding and positioning, prepped and draped in the usual sterile fashion. After official time out and no disagreement with planned procedure, there is purulence exuding out of multiple pits on his infected ruptured cyst or abscess site. Incising out including devitalized skin and subcu fat, including some underlying devitalized fascia. There is a pocket of infection extending underneath the muscle. This is all excised about 5 x 2.5 x 3 cm and passed off for pathology. Deep wound cultures taken and sent off. The devitalized tissue is carefully excised sharply. The wound is irrigated out. Hemostasis is controlled with pinpoint cautery. The wound was irrigated out with copious amounts of sterile saline. It was then packed with Iodoform packing. The patient tolerated the procedure well. Findings discussed with the family or friend out in the waiting area. Instructed on new packing, repacking with normal saline wet to dry until he seen by the wound center to see if they have any other recommendations such as a wound vac or other treatment modalities. Otherwise, I will see him back in the office next week.
== END 2022-09-30 17:05 | disposition home or self-care (01) ==
LOC: SDC 12:29
PROVIDERS: ATTEND Surgery
DX: L72.0 Epidermal cyst (principal)
CPT/HCPCS: 87070; 87077; 87186; J0690; J1100; J1170; J1885; J2250; J2370; J2405; J2704; J3010

== ENCOUNTER 2022-12-19 15:47 | Emergency (ER) | payer MEDICARE ==
--- NOTE | 2022-12-19 15:49 | ERPHSYRPT ---
- History of Present Illness Time Seen by Provider: 12/19/22 15:48 Source: patient, EMS Physician History: This is a 37-year-old white male patient of Dr. Armijo who has a history of seizure disorder as well as breakthrough seizure episodes. Patient medication list includes Keppra, phenobarbital, Haldol, fluoxetine, cenobamate, benztropine. He also has benazepril for high blood pressure. Patient returns to the emergency department from the [facility] for breakthrough seizure. Patient states that at 5 AM he had a seizure. He recalls that this. However later in the day he had another episode which she did not realize he had and fell hitting his left parietal region on a concrete floor. Patient did take his medication this morning. Patient has been receiving his medication per his report. Patient also has a VNS neurostimulator in place. Patient has history of anxiety disorder as well as bipolar disorder. He denies chest pain. He denies shortness of breath. He has no abdominal pain. Timing/Duration: today Severity: mild Character of Deficits: none Deficits: no difficulties Baseline/Normal Cognition: alert oriented x 3 Current Cognition: alert oriented x 3 Baseline Gait: walks w/o assistance Associated Symptoms: denies symptoms Allergies/Adverse Reactions: No Known Drug Allergies Allergy (Unverified 09/30/22 12:40) Home Medications: Phenobarb 32.4 mg [Phenobarbital 32.4 mg] 60 mg PO BID 11/21/16 [History] Fluoxetine HCl 20 mg PO DAILY 09/26/20 [History] Levetiracetam [Keppra] 1,000 mg PO BID 09/26/20 [History] Lacosamide 50 mg PO BID 04/10/22 [History] Benazepril HCl 1 tablet PO DAILY 09/27/22 [History] Benztropine Mesylate 0.5 mg PO BID 09/27/22 [History] Cenobamate [Xcopri] 50 mg PO BID 09/27/22 [History] Haloperidol [Haldol] 5 mg PO DAILY 09/27/22 [History] Hx Tetanus, Diphtheria Vaccination/Date Given: No Hx Influenza Vaccination/Date Given: Yes Hx Pneumococcal Vaccination/Date Given: No Travel Risk - International Travel Have you traveled outside of the country in past 3 weeks: No - Coronavirus Screening Are you exhibiting any of the following symptoms?: No Close contact with a COVID-19 positive Pt in past 14-21 Days: No - Vaccine Status Have you recieved a Covid-19 vaccination: No Box 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 - Vaccination Dates Dates if Unknown: at detention - Review of Systems Constitutional: No Symptoms Eyes: No Symptoms Ears, Nose, & Throat: No Symptoms Respiratory: No Symptoms Cardiac: No Symptoms Abdominal/Gastrointestinal: No Symptoms Genitourinary Symptoms: No Symptoms Musculoskeletal: No Symptoms Skin: Other (Scalp abrasion left parietal region) Neurological: Headache (Localized in the area of abrasion left parietal region), Seizure (Breakthrough seizure) Psychological: No Symptoms Endocrine: No Symptoms Hematologic/Lymphatic: No Symptoms Immunological/Allergic: No Symptoms All Other Systems: Reviewed and Negative - Past Medical History Pertinent Past Medical History: Yes Neurological History: Epilepsy, Other ENT History: No Pertinent History Cardiac History: Hypertension Respiratory History: No Pertinent History Endocrine Medical History: No Pertinent History Musculoskeletal History: No Pertinent History GI Medical History: No Pertinent History History: No Pertinent History Psycho-Social History: Anxiety, Bipolar, Depression Male Reproductive Disorders: No Pertinent History Other Medical History: HE NOTES MULTIPLE SEIZURES EVERYDAY. HE IS CURRENTLY BEING TITRATED WITH NEW MEDICATION. SCHIZOPHRENIA, BIPOLAR, DEPRESSION. - Past Surgical History Past Surgical History: Yes Neuro Surgical History: No Pertinent History Cardiac: No Pertinent History Respiratory: No Pertinent History Gastrointestinal: No Pertinent History Genitourinary: No Pertinent History Musculoskeletal: No Pertinent History Male Surgical History: No Pertinent History Other Surgical History: VNS Stimulator for seizures. (Internal Left Chest) - Social History Smoking Status: Former smoker Exposure to second hand smoke: No Alcohol Use: None Drug Use: none Patient Lives Alone: No Significant Family History: no pertinent family hx - Nursing Vital Signs Nursing Vital Signs: Initial Vital Signs Temperature 97.0 F 12/19/22 16:00 Pulse Rate 72 12/19/22 16:00 Respiratory Rate 18 12/19/22 16:00 Blood Pressure 130/90 12/19/22 16:00 O2 Sat by Pulse Oximetry 99 12/19/22 16:00 Pain Scale Pain Intensity 0 - [place] Coma Scale Best Eye Response (Jony): (4) open spontaneously Best Verbal Response (Jony): (5) oriented Best Motor Response ([place]): (6) obeys commands [place] Total: 15 - Physical Exam General Appearance: no apparent distress, alert Eye Exam: bilateral eye: normal inspection, PERRL, EOMI Ears, Nose, Throat Exam: normal ENT inspection, moist mucous membranes, tonsillar exudate Neck Exam: normal inspection, non-tender, supple Respiratory: normal breath sounds, lungs clear, airway intact, No chest tenderness, No respiratory distress Cardiovascular: regular rate/rhythm, normal heart sounds, normal peripheral pulses Gastrointestinal: soft, normal bowel sounds, No tenderness Rectal Exam: not done Back Exam: normal inspection, normal range of motion, No CVA tenderness, No vertebral tenderness Extremity Exam: normal inspection, normal range of motion, pelvis stable 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, oriented x 3, cooperative core sucker Exam: normal hearing, normal speech, PERRL, tongue midline Coordination/Gait: normal gait, normal cerebellar function Motor/Sensory: no motor deficit, no sensory deficit Skin Exam: abrasion (Left parietal region) SpO2 Interpretation: normal O2 Delivery: Room Air - Course Nursing assessment & vital signs reviewed: Yes Ordered Tests: Active Orders 24 hr Category Date Time Status Clean Catch Urine Specimen STAT Care 12/19/22 17:39 Active HEAD WITHOUT CONTRAST [CT] Stat Exams 12/19/22 16:19 Completed CBC W DIFF Stat Lab 12/19/22 16:45 Completed CMP Stat Lab 12/19/22 16:45 Completed UA W/RFX UR CULTURE Stat Lab 12/19/22 17:21 Completed Urine Triage Profile Stat Lab 12/19/22 17:44 Received Lab/Rad Data: Laboratory Result Diagrams 12/19/22 16:45 12/19/22 16:45 Laboratory Results 12/19/22 12/19/22 12/19/22 Range/Units 17:21 16:45 16:45 WBC 6.7 (4.0-10.5) x10^3/uL RBC 4.40 (4.1-5.6) x10^6/uL Hgb 13.8 (12.5-18.0) g/dL Hct 42.8 (42-50) % MCV 97.3 (78-100) fL MCH 31.4 (26-32) pg MCHC 32.2 (32-36) g/dL RDW 13.1 (11.5-14.0) % Plt Count 215 (150-450) x10^3/uL MPV 8.7 (7.5-11.0) fL Gran % 70.6 H (36.0-66.0) % Immature Gran % (Auto) 0.1 (0.00-0.4) % Nucleat RBC Rel Count 0.0 (0.00-0.1) % Eos # (Auto) 0.22 (0-0.5) x10^3/uL Immature Gran # (Auto) 0.01 (0.00-0.03) x10^3u/L Absolute Lymphs (auto) 0.99 L (1.0-4.6) x10^3/uL Absolute Monos (auto) 0.73 (0.0-1.3) x10^3/uL Absolute Nucleated RBC 0.00 (0.00-0.01) x10^3u/L Lymphocytes % 14.8 L (24.0-44.0) % Monocytes % 10.9 (0.0-12.0) % Eosinophils % 3.3 (0.00-5.0) % Basophils % 0.3 (0.0-0.4) % Absolute Granulocytes 4.74 (1.4-6.9) x10^3/uL Basophils # 0.02 (0-0.4) x10^3/uL Sodium 137 (137-145) mmol/L Potassium 4.2 (3.5-5.1) mmol/L Chloride 100 (98-107) mmol/L Carbon Dioxide 28 (22-30) mmol/L Anion Gap 12.8 (5-15) MEQ/L BUN 13 (9-20) mg/dL Creatinine 0.75 (0.66-1.25) mg/dL Estimated GFR > 60.0 ML/MIN Glucose 100 (74-106) mg/dL Calcium 8.6 (8.4-10.2) mg/dL Total Bilirubin 0.30 (0.2-1.3) mg/dL AST 31 (17-59) U/L ALT 27 (0-50) U/L Alkaline Phosphatase 82 (38-126) U/L Serum Total Protein 6.7 (6.3-8.2) g/dL Albumin 4.2 (3.5-5.0) g/dL Urine Color Yellow (Yellow) Urine Appearance Clear (Clear) Urine pH 7.0 (4.6-8.0) Ur Specific [place] 1.015 (1.005-1.030) Urine Protein 30 (Negative) Urine Glucose (UA) Negative (Negative) mg/dL Urine Ketones Negative (Negative) Urine Blood Negative (Negative) Urine Nitrite Negative (Negative) Urine Bilirubin Negative (Negative) Urine Urobilinogen 1.0 A (0.2) mg/dL Ur Leukocyte Esterase Negative (Negative) U Hyaline Cast (Auto) NONE SEEN (0-2) /LPF Urine Microscopic RBC 0-2 (0-5) /HPF Urine Microscopic WBC 0-2 (0-5) /HPF Ur Epithelial Cells None Seen (None Seen) /HPF Urine Bacteria None Seen (None Seen) /HPF Urine Culture Reflexed NO (NO) - Progress Progress: improved, re-examined Progress Note: 12/19/22 17:53 CT scan of the head without contrast was interpreted by the radiologist. I reviewed the impression. There is no acute intracranial abnormality. The right hippocampal atrophy is present/persistent and stable when compared to prior CT radiographic study. There is a left, high parietal sublobar we will hematoma which has regressed in size. This was present on a prior CT scan study. This patient's medical issue is 1 of moderate complexity. Level complexity and the work-up performed is based on review of the patient's past medical history, review of the patient's medication list, review the patient's drug allergy list, history present illness and physical findings on examination. The work-up in this patient includes a urinalysis, urine drug screen, placement of intravenous line, CT scan of the head, CBC, CMP levels. I reviewed the results of these findings. There is no acute, emergent medical issue. The patient needs to follow-up with a neurologist. The patient has had breakthrough seizure issues. They will adjust his medication if they feel it is indicated. Patient is medically cleared to return to detention. 12/19/22 17:57 Counseled pt/family regarding: lab results, diagnosis, need for follow-up, rad results Medical Desision Making - Independent Historian Additional History obtained from: Manager Dairy ([facility]) - External Record(s) Reviewed Records reviewed as a part of evaluation & management: Clinic - Diagnostic Testing Diagnostic test were ordered, analyzed, and reviewed by me: Yes Radiological Interpretation: Reviewed by me, Teleradiologist Report - Risk of complications Low Risk: Low risk of morbidity from additional dx testing or treatment - Departure Departure Disposition: Retirement/Shelter Clinical Impression: Breakthrough seizure, Scalp abrasion, Medical clearance for incarceration Condition: Stable Critical Care Time: No Referrals: HOLLAND ARMIJO [Primary Care Provider] - Follow up/PCP as directed Additional Instructions: Continue your medication as prescribed. Follow-up with a neurologist to determine if changes need to be made in your medication. Keep your scalp abrasion site clean with soap and water daily and cover with a thin layer of antibiotic ointment.
[2022-12-19 16:02] VITALS: RESP 18; TEMP 97
[2022-12-19 16:53] LABS: Absolute Neutrophil Ct (ANC) 4.74 x10^3/uL (1.4-6.9); BASOPHIL % 0.3 % (0.0-0.4); Basophil (Absolute #) 0.02 x10^3/uL (0-0.4); Eosinophil % 3.3 % (0.00-5.0); Eosinophil (Absolute #) 0.22 x10^3/uL (0-0.5); Hematocrit 42.8 % (42-50); Hemoglobin 13.8 g/dL (12.5-18.0); IMMATURE GRAN # 0.01 x10^3u/L (0.00-0.03); IMMATURE GRAN % 0.1 % (0.00-0.4); Lymphocyte (Absolute #) 0.99 x10^3/uL (1.0-4.6); Lymphocytes % 14.8 % (24.0-44.0); Mean Cell Volume 97.3 fL (78-100); Mean Corpuscular Hemoglobin 31.4 pg (26-32); Mean Corpuscular Hgb Concent. 32.2 g/dL (32-36); Mean Platelet Volume 8.7 fL (7.5-11.0); Monocyte (Absolute #) 0.73 x10^3/uL (0.0-1.3); Monocytes % 10.9 % (0.0-12.0); Neutrophil % 70.6 % (36.0-66.0); Platelet Count 215 x10^3/uL (150-450); Red Cell Distribution Width 13.1 % (11.5-14.0); White Blood Count 6.7 x10^3/uL (4.0-10.5)
[2022-12-19 17:03] VITALS: BP 120/87; PULSE 75; O2SAT 99
--- NOTE | 2022-12-19 17:07 | XRAY ---
CLINICAL HISTORY:Seizure breakthrough COMPARISON:06/26/2022. TECHNIQUE:Non-enhanced CT scan of the brain was performed in axial plane with multiplanar reconstructions in bony and soft tissue windows. FINDINGS: Normal CT attenuation of both cerebral hemispheres with no areas of abnormal attenuation values. No suspicious space-occupying lesions. There is volume loss of the medial aspect of the right temporal lobe (hippocampus). No intra or extra-axial collections of fresh blood density. Faint bilateral basal ganglia hyperdensities noted. Normal size and shape of the ventricles, basal cisterns and cortical sulci. Basal ganglia, thalamus and internal capsule appear normal. Brainstem and ok appear normal. No shift of midline structures. Unremarkable posterior fossa. Largely preserved cranial calvarial bones. Visualized paranasal sinuses appear clear. The previously seen left high parietal subgaleal hematoma has been decreased in size. IMPRESSION: 1. No acute intracranial abnormality. 2. Right hippocampal atrophy. Stable findings when compared with prior study. Further evaluation by MRI is advised to rule out mesial temporal sclerosis. 3. Left high parietal subgaleal hematoma that has been regressed in size. Electronically Signed by: Sujit Deutsch MD. (12/19/2022 16:06:39 ENGINEER FISHING VESSEL)
[2022-12-19 17:11] LABS: ALBUMIN 4.2 g/dL (3.5-5.0); ALKALINE PHOSPHATASE 82 U/L (38-126); ANION GAP 12.8 MEQ/L (5-15); BLOOD UREA NITROGEN 13 mg/dL (9-20); CHLORIDE 100 mmol/L (98-107); Calcium 8.6 mg/dL (8.4-10.2); Carbon Dioxide 28 mmol/L (22-30); Creatinine 1 0.75 mg/dL (0.66-1.25); EST GLOMERULAR FILTRATION RATE > 60.0 ML/MIN; Glucose 100 mg/dL (74-106); Potassium 4.2 mmol/L (3.5-5.1); SGOT/AST 31 U/L (17-59); SGPT/ALT 27 U/L (0-50); SODIUM 137 mmol/L (137-145); Total Protein 6.7 g/dL (6.3-8.2)
[2022-12-19 17:32] LABS: Appearance Clear (Clear); Bacteria None Seen /HPF (None Seen); Bilirubin Negative (Negative); Blood Negative (Negative); Epithelial Cells None Seen /HPF (None Seen); Glucose, Urine Negative (Negative); Hyaline Casts NONE SEEN /LPF (0-2); Ketones Negative (Negative); Leukocyte Esterase Negative (Negative); Nitrite Negative (Negative); Protein,Urine Dip 30 (Negative); RBC 0-2 /HPF (0-5); Specific Gravity 1.015 (1.005-1.030); WBC 0-2 /HPF (0-5)
[2022-12-19 17:50] LABS: ADD URINE CULTURE? NO (NO)
[2022-12-19 18:05] LABS: Amphetamine,Urine NEGATIVE (NEGATIVE); Barbiturate,Urine POSITIVE (NEGATIVE); Benzodiazepine,Urine NEGATIVE (NEGATIVE); Cocaine,Urine NEGATIVE (NEGATIVE); Methadone,Urine NEGATIVE (NEGATIVE); Opiate,Urine NEGATIVE (NEGATIVE); PCP,Urine NEGATIVE (NEGATIVE); THC,Urine NEGATIVE (NEGATIVE)
== END 2022-12-19 18:15 | disposition home or self-care (01) ==
LOC: ED 15:47
DX: Z02.89 Encounter for other administrative examinations (principal); S00.01XA Abrasion of scalp, initial encounter; W19.XXXA Unspecified fall, initial encounter; Y92.149 Unspecified place in prison as the place of occurrence of the external cause; G40.909 Epilepsy, unspecified, not intractable, without status epilepticus; I10 Essential (primary) hypertension; Z79.899 Other long term (current) drug therapy
CPT/HCPCS: 36415; 70450; 80053; 80307; 81001; 85025; 99283